=== PATIENT | female | born 1955 | race Caucasian/White ===

== ENCOUNTER 2016-03-12 09:06 | Outpatient (CLI) | payer MEDICAID | END 2016-03-12 09:07 | disposition home or self-care (01) | DX: E11.9 Type 2 diabetes mellitus without complications (principal) ==

== ENCOUNTER 2016-10-08 10:16 | Outpatient (CLI) | payer MEDICAID ==
[2016-10-08 19:01] LABS: CALCIUM 10.1 mg/dL (8.5-10.3); CREATININE 0.7 mg/dL (0.4-1.0)
[2016-10-08 20:19] LABS: HEMOGLOBIN A1C 0.75 g/dL
== END 2016-10-08 10:17 | disposition home or self-care (01) ==
LOC: LAB.F 10:16
PROVIDERS: ATTEND Physician Assistant Medical
DX: E11.9 Type 2 diabetes mellitus without complications (principal)
CPT/HCPCS: 36415; 80048; 82043; 83036

== ENCOUNTER 2016-10-29 15:53 | Outpatient (CLI) | payer OTHER, MEDICAID ==
--- NOTE | 2016-10-31 13:56 | Mammography Report ---
DIGITAL SCREENING MAMMOGRAM: 10/29/2016 CLINICAL INDICATION: A 61-year-old, for screening. COMPARISON: 05/2013, 04/2010. TECHNIQUE: Routine CC and MLO projections were obtained of the breasts. FINDINGS: The breasts demonstrate fatty replacement bilaterally. Intramammary lymph nodes are stable . A few coarse, typically benign calcifications are present. No suspicious masses, clustered microcal cifications, or regions of architectural distortion are identified. IMPRESSION: BENIGN FINDINGS. RECOMMENDATION: ROUTINE ANNUAL SCREENING UNLESS OTHERWISE CLINICALLY INDICATED. BIRADS CATEGORY 2-BENIGN FINDINGS. STANDARD QUALIFYING STATEMENTS 1. This examination was reviewed with the aid of Computer-Aided Detection (CAD). 2. A negative or benign imaging report should not delay biopsy if clinically suspicious findings are present. Consider surgical consultation if warranted. More than 5% of cancers are not identified by i maging. 3. Dense breasts may obscure an underlying neoplasm. JOB #: [id number] EXT JOB #:[id number]
== END 2016-10-29 15:54 | disposition home or self-care (01) ==
LOC: DI.S 15:53
PROVIDERS: ATTEND Physician Assistant Medical
DX: Z12.31 Encounter for screening mammogram for malignant neoplasm of breast (principal)
CPT/HCPCS: 77067

== ENCOUNTER 2016-12-02 14:32 | Outpatient (CLI) | payer MEDICAID | END 2016-12-02 14:33 | disposition EMS.NT | LOC: EMS 14:32 | PROVIDERS: ATTEND Surgery | DX: R40.20 Unspecified coma (principal) ==

== ENCOUNTER 2017-02-19 10:02 | Outpatient (CLI) | payer MEDICAID ==
[2017-02-19 18:21] LABS: BASOPHILS % (AUTO) 0.7 %; EOSINOPHILS # (AUTO) 0.2 10^3/uL (0.0-0.7); EOSINOPHILS % (AUTO) 3.5 %; HCT - HEMATOCRIT 40.3 % (37.0-47.0); HGB - HEMOGLOBIN 13.1 g/dL (12.0-16.0); LYMPHOCYTES # (AUTO) 1.8 10^3/uL (1.5-3.5); LYMPHOCYTES % (AUTO) 29.8 %; MEAN CORPUSCULAR HEMOGLOBIN 28.9 pg (27.0-31.0); MEAN CORPUSCULAR HGB CONC 32.4 g/dL (32.0-36.0); MEAN PLATELET VOLUME 9.2 fL (7.9-10.8); MONOCYTES # (AUTO) 0.7 10^3/uL (0.0-1.0); MONOCYTES % (AUTO) 11.3 %; NEUTROPHILS # (AUTO) 3.4 10^3/uL (1.5-6.6); NEUTROPHILS % (AUTO) 54.7 %; RED BLOOD COUNT 4.52 10^6/uL (4.20-5.40); RED CELL DISTRIBUTION WIDTH 13.3 % (12.0-15.0); UNCORRECTED WHITE BLOOD COUNT 6.2 x10^3/uL; WHITE BLOOD COUNT 6.2 x10^3/uL (4.8-10.8)
[2017-02-19 18:26] LABS: HEMOGLOBIN A1C 0.81 g/dL
[2017-02-19 18:32] LABS: ALBUMIN/GLOBULIN RATIO 1.6 (1.0-2.2); BILIRUBIN,TOTAL 0.6 mg/dL (0.2-1.0); BUN - BLOOD UREA NITROGEN 12 mg/dL (6-20); CALCIUM 9.3 mg/dL (8.5-10.3); CARBON DIOXIDE - CO2 30 mmol/L (21-32); CHLORIDE 99 mmol/L (101-111); CHOL/HDL RATIO 3.3 (<4.4); CHOLESTEROL 167 mg/dL; CREATININE 0.8 mg/dL (0.4-1.0); GFR - MDRD 73 (>89); GLUCOSE 116 mg/dL (70-100); HDL CHOLESTEROL 51 mg/dL; LDL/HDL RATIO 1.9 (<4.4); POTASSIUM 4.1 mmol/L (3.5-5.0); SODIUM 138 mmol/L (135-145); TOTAL PROTEIN 6.7 g/dL (6.7-8.2); TRIGLYCERIDES 92 mg/dL; VLDL CHOLESTEROL 18 mg/dL
== END 2017-02-19 10:03 | disposition home or self-care (01) ==
LOC: LAB.F 10:02
PROVIDERS: ATTEND Physician Assistant Medical
DX: Z00.00 Encounter for general adult medical examination without abnormal findings (principal); Z51.81 Encounter for therapeutic drug level monitoring; Z79.899 Other long term (current) drug therapy; E78.5 Hyperlipidemia, unspecified; E11.9 Type 2 diabetes mellitus without complications
CPT/HCPCS: 36415; 80053; 80061; 83036; 85025

== ENCOUNTER 2017-04-09 14:35 | Outpatient (CLI) | payer MEDICAID ==
--- NOTE | 2017-04-09 22:04 | MRI Report ---
EXAM: RIGHT SHOULDER MRI WITHOUT CONTRAST EXAM DATE: 04/09/2017 03:12 PM. CLINICAL HISTORY: Right shoulder pain, chronic. Calcific tendinosis of the rotator cuff. COMPARISON: Right shoulder radiography from 04/02/2017. TECHNIQUE: Multiplanar, multisequence T1-weighted and fluid-sensitive sequences of the shoulder witho ut contrast. Other: None. FINDINGS: Some of the images are degraded due to patient-related motion artifact. Acromioclavicular Region: The acromion is type II. There are enthesophytes at the anterior inferior a spect of the acromion. Gels-cg-[id number] acromioclavicular joint osteoarthritis. The coracoacromial an d coracoclavicular ligaments are intact. Small amount of fluid at the subacromial/subdeltoid bursa. T here is a 1 x 0.3 cm focus of isointense to hypointense tissue within the anterolateral aspect of the subdeltoid bursa. Glenohumeral Region: No subluxation. No effusion or loose bodies. The articular cartilage is unremark able. The glenohumeral ligaments and joint capsule are unremarkable. Bone Marrow: No fracture, marrow edema or bone lesions. Labrum: The labrum is unremarkable on this nonarthrographic study. Musculature/Rotator Cuff: There is supraspinatus tendinosis. There is an approximately 8 x 8 mm low-g rade partial-thickness bursal surface tear at the posterior distal aspect of the supraspinatus tendon . There is infraspinatus tendinosis. Teres minor tendon is unremarkable. There is tendinosis and a 1. 3 x 1 x 1.6 cm calcified deposit within the distal subscapularis tendon. No edema or fatty atrophy. Biceps Tendon: The long head of the biceps tendon and biceps natasha are intact. Other: The subcutaneous tissues are unremarkable. IMPRESSION: 1. Enthesophytes at the anterior inferior aspect of the acromion. Ocpy-sb-cknmclju acromioclavicular joint osteoarthritis. 2. Mild subacromial/subdeltoid bursitis. Small 1 x 0.3 cm focus of tissue within the anterolateral as pect of the subdeltoid bursa which may represent a calcified deposit or loose body or focal synovial debris. 3. Tendinosis and a focal 8 mm low-grade partial-thickness bursal surface tear at the supraspinatus t endon. Infraspinatus tendinosis. Calcific subscapularis tendinosis. [facility] MUSCULOSKELETAL RADIOLOGY SECTION Referring Provider Line: [phone] SITE ID: [id number]
== END 2017-04-09 14:36 | disposition home or self-care (01) ==
LOC: DI 14:35
PROVIDERS: ATTEND Orthopaedic Surgery
DX: M75.91 Shoulder lesion, unspecified, right shoulder (principal); M19.011 Primary osteoarthritis, right shoulder; M75.51 Bursitis of right shoulder; M75.101 Unspecified rotator cuff tear or rupture of right shoulder, not specified as traumatic

== ENCOUNTER 2017-07-02 10:53 | Outpatient (CLI) | payer MEDICAID | END 2017-07-02 10:54 | disposition home or self-care (01) | LOC: SC 10:53 | PROVIDERS: ATTEND Internal Medicine Pulmonary Disease | DX: G47.30 Sleep apnea, unspecified (principal); G47.10 Hypersomnia, unspecified; R06.83 Snoring | CPT/HCPCS: 99203; 99212 ==

== ENCOUNTER 2017-08-19 09:14 | Outpatient (CLI) | payer MEDICAID | END 2017-08-19 09:15 | disposition home or self-care (01) | LOC: SC 09:14 | PROVIDERS: ATTEND Nurse Practitioner Family | DX: G47.33 Obstructive sleep apnea (adult) (pediatric) (principal) | CPT/HCPCS: 99212; 99214 ==

== ENCOUNTER 2017-09-19 10:11 | Outpatient (CLI) | payer MEDICAID ==
[2017-09-19 18:19] LABS: HB2 TOTAL 13.5 g/dL; HEMOGLOBIN A1C 0.83 g/dL; HEMOGLOBIN A1C % 7.8 % (4.6-6.2)
[2017-09-19 18:28] LABS: ALBUMIN/GLOBULIN RATIO 1.5 (1.0-2.2); BILIRUBIN,TOTAL 0.7 mg/dL (0.2-1.0); CALCIUM 9.4 mg/dL (8.5-10.3); CREATININE 0.7 mg/dL (0.4-1.0); TOTAL PROTEIN 6.7 g/dL (6.7-8.2)
[2017-09-19 19:41] LABS: MICROALBUM/CREATININE RATIO,UR 21.7 ug/mg (<30.0); MICROALBUMIN,URINE 1.8 mg/dL (0-300.0)
== END 2017-09-19 10:12 | disposition home or self-care (01) ==
LOC: LAB.F 10:11
PROVIDERS: ATTEND Physician Assistant Medical
DX: E11.9 Type 2 diabetes mellitus without complications (principal); I10 Essential (primary) hypertension
CPT/HCPCS: 36415; 80053; 82043; 82570; 83036

== ENCOUNTER 2017-10-15 16:40 | Outpatient (CLI) | payer MEDICAID ==
--- NOTE | 2017-10-15 23:00 | XRAY Report ---
Procedure Date: 10/15/2017 Accession Number: [id number] / [id number] Procedure: XR - Foot 3 View LT CPT Code: FULL RESULT: EXAM: LEFT FOOT RADIOGRAPHY EXAM DATE: 10/15/2017 04:55 PM. CLINICAL HISTORY: Pain at second metatarsal without injury. COMPARISON: None. TECHNIQUE: 3 views. FINDINGS: Bones: There is no acute fracture or destructive bony abnormality. There is mild flattening of the distal articular surface of the second metatarsal. There is mild bony remodeling of the distal first metatarsal articular surface. Joints: The joint spaces preserved. No subluxation. Soft Tissues: There is a plantar calcaneal spur and spur at Achilles insertion. IMPRESSION: 1. No acute fracture or destructive bony abnormality. 2. Mild flattening of the distal articular surface of the second and first metatarsal without cortical disruption. Question a degenerative/arthritis process. [facility]
== END 2017-10-15 16:41 | disposition home or self-care (01) ==
LOC: DI 16:40
PROVIDERS: ATTEND Podiatrist
DX: M79.672 Pain in left foot (principal)

== ENCOUNTER 2017-11-06 11:53 | Emergency (ER) | payer MEDICAID ==
[2017-11-06 12:20] LABS: BILIRUBIN,URINE NEGATIVE (NEGATIVE); GLUCOSE, URINE (UA) 100 mg/dL (NEGATIVE); KETONES,URINE (UA) NEGATIVE (NEGATIVE); LEUKOCYTE ESTERASE, URINE MODERATE (NEGATIVE); NITRITE,URINE NEGATIVE (NEGATIVE); OCCULT BLOOD,URINE LARGE (NEGATIVE); PROTEIN,URINE TRACE mg/dL (NEGATIVE); UROBILINOGEN,URINE 0.2 (NORMAL) E.U./dL (NORMAL)
[2017-11-06 12:24] LABS: CLARITY,URINE HAZY (CLEAR)
[2017-11-06 12:36] LABS: BACTERIA,URINE Few /HPF (None Seen); SQUAMOUS EPITHELIAL CELL,UR FEW Squamous (<= Few); WBC CLUMPS,URINE PRESENT
[2017-11-06] MEDS ORDERED: cefTRIAXone 1 GM VIAL IM STA (13:27)
[2017-11-06] MEDS ORDERED: LIDOCAINE 1% 2 ML VIAL SUBQ ONE (13:27)
[2017-11-06] MEDS ORDERED: HYDROcod/ACETAM 5/325 MG TABLET PO STA (13:27)
--- NOTE | 2017-11-06 13:33 | ED Physician Documentation ---
History of Present Illness - Stated complaint Stated Complaint: FEMALE /LOWER BACK PX - Chief complaint Chief Complaint: UTI - History obtained from History obtained from: Patient - History of Present Illness Timing: How many days ago (4) Pain level max: 8 Pain level now: 8 Improved by: nothing Worsened by: urination - Additonal information Additional information: Patient is a 62-year-old female who has had piquancy, urgency, burning with urination for the past 4 days. Has now spread into the left flank and is having increasing pain. States had a temperature 100 last night. No vomiting. Has had slight diarrhea. No vaginal bleeding or discharge. Has not taken any antibiotics recently. Has had UTIs in the past Review of Systems Ten Systems: 10 systems reviewed and negative Constitutional: reports: Fever, Chills Ears: denies: Ear pain Nose: denies: Rhinorrhea / runny nose, Congestion Throat: denies: Sore throat Cardiac: denies: Chest pain / pressure Respiratory: denies: Cough GI: denies: Nausea, Vomiting, Hematemesis, Bloody / black stool : reports: Dysuria, Frequency, Hesitancy Skin: denies: Rash Musculoskeletal: denies: Neck pain, Back pain Neurologic: denies: Headache PD PAST MEDICAL HISTORY - Past Medical History Cardiovascular: Hypertension, High cholesterol Respiratory: Asthma Endocrine/Autoimmune: Type 2 diabetes GI: GERD, GI bleed Psych: Depression Musculoskeletal: Osteoarthritis, Other - Past Surgical History /SVP MONETIZATION: section, Other - Present Medications Home Medications: Ambulatory Orders Medication Instructions Recorded Confirmed Glipizide 5 mg BID 07/21/13 07/21/13 HYDROcod/ACETAM 5/325 [[place]erson 5/325] 1 07/21/13 07/21/13 Ropinirole HCl 1 mg 07/21/13 07/21/13 Sertraline [Zoloft] 100 mg BID 07/21/13 07/21/13 Simvastatin 20 07/21/13 07/21/13 metFORMIN [Glucophage] 1,000 mg BID 07/21/13 07/21/13 traZODone [Desyrel] 100 07/21/13 07/21/13 Cefdinir 300 mg PO BID #28 capsule 11/06/17 Hydrocodone/Acetaminophen 1 - 2 each PO Q6H PRN #14 tablet 11/06/17 [Hydrocodon-Acetaminophen 5-325] - Allergies Allergies/Adverse Reactions: Allergies Allergy/AdvReac Type Severity Reaction Status Date / Time lisinopril Allergy Dizziness Verified 11/06/17 12:05 codeine AdvReac Itching Verified 11/06/17 12:05 PD ED PE NORMAL - Vitals Vital signs reviewed: Yes - General General: Alert and oriented X 3, No acute distress - HEENT HEENT: Moist mucous membranes - Neck Neck: Supple, no meningeal sign - Cardiac Cardiac: RRR - Respiratory Respiratory: No respiratory distress, Clear bilaterally - Abdomen Abdomen: Soft, Non tender, Non distended - Back Back: No spinal TTP, Other (mild L CVAT) - Derm Derm: Warm and dry - Neuro Neuro: Alert and oriented X 3 - Psych Psych: Normal mood, Normal affect Results - Vitals Vitals: Vital Signs - 24 hr 11/06/17 11/06/17 12:01 13:52 Temperature 36.8 C Heart Rate 94 86 Respiratory 20 18 Rate Blood Pressure 123/59 L 113/65 O2 Saturation 93 97 Oxygen O2 Source Room air - Labs Labs: Laboratory Tests 11/06/17 12:00 Urine Color YELLOW Urine Clarity HAZY Urine pH 7.0 Ur Specific [place] <=1.005 Urine Protein TRACE Urine Glucose (UA) 100 H Urine Ketones NEGATIVE Urine Occult Blood LARGE H Urine Nitrite NEGATIVE Urine Bilirubin NEGATIVE Urine Urobilinogen 0.2 (NORMAL) Ur Leukocyte Esterase MODERATE H Urine RBC 6-10 H Urine WBC 11-25 H Urine WBC Clumps PRESENT Ur Squamous Epith Cells FEW Squamous Urine Bacteria Few Ur Microscopic Review INDICATED Urine Culture Comments INDICATED PD MEDICAL DECISION MAKING - ED course Complexity details: reviewed results, re-evaluated patient, considered differential, d/w patient ED course: Patient is a 62-year-old female with what appears to be a UTI, concerned that is developing into a pyelonephritis. Given IM Rocephin and will be placed on cefdinir for home. She is well-appearing, nontoxic. Afebrile. Tolerating p.o. without difficulty. We will have her follow-up with her doctor for further evaluation and care. Patient counseled regarding signs and symptoms for which I believe and urgent re-evaluation would be necessary. Patient with good understanding of and agreement to plan and is comfortable going home at this time This document was made in part using voice recognition software. While efforts are made to proofread this document, sound alike and grammatical errors may occur. - Sepsis Event Vital Signs: Vital Signs - 24 hr 11/06/17 11/06/17 12:01 13:52 Temperature 36.8 C Heart Rate 94 86 Respiratory 20 18 Rate Blood Pressure 123/59 L 113/65 O2 Saturation 93 97 Oxygen O2 Source Room air Departure - Departure Disposition: 01 Home, Self Care Clinical Impression: Pyelonephritis Condition: Good Instructions: ED Kidney Infec Female Follow-Up: Taylor Cheney PA-C [Primary Care Provider] - Within 1 week Prescriptions: Cefdinir 300 mg PO BID #28 capsule Hydrocodone/Acetaminophen [Hydrocodon-Acetaminophen 5-325] 1 - 2 each PO Q6H PRN #14 tablet PRN Reason: pain Comments: Take all antibiotics until gone. Return if you worsen. Follow-up with your doctor for further care. Do not drink alcohol or drive while on narcotic pain medicine. Note that many narcotic pain relievers also contain tylenol/acetaminophen. Please ensure that your total dose of acetaminophen from all sources does not exceed 3 grams (3000mg) per day. You may constipated on this medication, take a stool softener such as "Colace" twice a day while you are on it. Also recommend a xoci-zyt-kgdbugq laxative such as senna or MiraLAX any day that you do not have a bowel movement. If you received narcotic pain medication in the emergency department, do not drive or operate machinery for the next 24 hours.
[2017-11-06 13:53] VITALS: BP 113/65
== END 2017-11-06 14:25 | disposition home or self-care (01) ==
LOC: ED 11:53
DX: N12 Tubulo-interstitial nephritis, not specified as acute or chronic (principal); I10 Essential (primary) hypertension; E78.00 Pure hypercholesterolemia, unspecified; E11.9 Type 2 diabetes mellitus without complications
CPT/HCPCS: 81001; 87086; 87181; 96372; 99283; A9270; 81003

== ENCOUNTER 2017-12-19 09:49 | Outpatient (CLI) | payer MEDICAID ==
[2017-12-19 17:34] LABS: BUN - BLOOD UREA NITROGEN 14 mg/dL (6-20); CALCIUM 9.8 mg/dL (8.5-10.3); CARBON DIOXIDE - CO2 31 mmol/L (21-32); CHLORIDE 96 mmol/L (101-111); CHOL/HDL RATIO 2.9 (<4.4); CHOLESTEROL 173 mg/dL; CREATININE 0.7 mg/dL (0.4-1.0); GFR - MDRD 85 (>89); GLUCOSE 129 mg/dL (70-100); HDL CHOLESTEROL 59 mg/dL; LDL CHOLESTEROL,CALCULATED 96 mg/dL; LDL/HDL RATIO 1.6 (<4.4); SODIUM 135 mmol/L (135-145); VLDL CHOLESTEROL 18 mg/dL
[2017-12-19 17:35] LABS: HB2 TOTAL 14.9 g/dL; HEMOGLOBIN A1C 0.8 g/dL; HEMOGLOBIN A1C % 7.1 % (4.6-6.2)
== END 2017-12-19 09:50 | disposition home or self-care (01) ==
LOC: LAB.F 09:49
PROVIDERS: ATTEND Physician Assistant Medical
DX: E78.5 Hyperlipidemia, unspecified (principal); E11.9 Type 2 diabetes mellitus without complications
CPT/HCPCS: 36415; 80048; 80061; 83036; 83721

== ENCOUNTER 2017-12-30 14:05 | Outpatient (CLI) | payer MEDICAID | END 2017-12-30 14:06 | disposition home or self-care (01) | LOC: SC 14:05 | PROVIDERS: ATTEND Internal Medicine Pulmonary Disease | DX: G47.33 Obstructive sleep apnea (adult) (pediatric) (principal) | CPT/HCPCS: 99212; 99213 ==

== ENCOUNTER 2018-02-05 13:29 | Outpatient (CLI) | payer MEDICAID ==
--- NOTE | 2018-02-06 09:06 | DEXA Report ---
Reason: POSTMENOPAUSAL STATUS Procedure Date: 02/05/2018 Accession Number: [id number] / [id number] Procedure: DEX - Dexa Spine and/or Hip CPT Code: FULL RESULT: EXAM: Dexa Spine and/or Hip DATE: 02/05/2018 2:24 PM CLINICAL HISTORY: POSTMENOPAUSAL STATUS TECHNIQUE: Dual energy x-ray absorptiometry (DXA) was performed on a [employer] Dx System. Regions measured are the AP Spine, femoral neck, and if needed forearm. COMPARISON: None. In accordance with the International Society for Clinical Densitometry (ISCD) guidelines, data from previous exams may be reanalyzed using current recommendations and techniques. This is done to allow a more accurate basis for comparison with the current study. FINDINGS: The data for the lumbar spine is as follows: BMD (g/cm/cm) T-SCORE Z-SCORE REGION L1 1.016 -0.9 0.1 L2 1.093 -0.9 0.1 L3 1.268 0.6 1.6 L4 1.372 1.4 2.4 TOTAL 1.196 0.1 1.2 NOTE: All evaluable vertebrae are used for classification The data for the hip is as follows: BMD (g/cm/cm) T-SCORE Z-SCORE REGION Neck 0.994 -0.3 0.8 TOTAL 1.075 0.5 1.3 NOTE: The femoral neck or total proximal femur, whichever is lowest, is used for classification. IMPRESSION: THE WHO CLASSIFICATION BASED ON THE INTERNATIONAL REFERENCE STANDARD IS NORMAL. THE FRACTURE RISK IS NOT INCREASED. RECOMMENDATION: Patients with diagnosis of osteoporosis or osteopenia should have regular bone mineral density assessment. For those eligible for Medicare, routine testing is allowed once every 2 years. Testing frequency can be increased for patients who have rapidly progressing disease or for those who are receiving medical therapy to restore bone mass. COMMENT: World Health Organization (WHO) definitions for osteoporosis and osteopenia: NORMAL BMD: T-score at -1.0 or higher, fracture risk is low OSTEOPENIA BMD: T-score between -1.0 and -2.5, fracture risk is increased. OSTEOPOROSIS BMD: T-score at -2.5 or lower, fracture risk is high. National Osteoporosis Foundation recommends: 1. Obtain adequate dietary calcium (at least 1200 mg per day) and vitamin D (400-800 international units per day). 2. Participate, as appropriate, in regular weightbearing and muscle-strengthening exercise. 3. Avoid tobacco use and reduce alcohol and caffeine intake. 4. For more detailed information see the website at www.NOF.org.
== END 2018-02-05 13:30 | disposition home or self-care (01) ==
LOC: DI 13:29
PROVIDERS: ATTEND Physician Assistant Medical
DX: Z78.0 Asymptomatic menopausal state (principal)
CPT/HCPCS: 77080

== ENCOUNTER 2018-03-03 13:07 | Outpatient (CLI) | payer MEDICAID | END 2018-03-03 13:08 | disposition home or self-care (01) | LOC: SC 13:07 | PROVIDERS: ATTEND Internal Medicine Pulmonary Disease | DX: G47.33 Obstructive sleep apnea (adult) (pediatric) (principal) | CPT/HCPCS: 99212; 99213 ==

== ENCOUNTER 2018-05-27 10:07 | Outpatient (CLI) | payer MEDICAID ==
--- NOTE | 2018-05-27 11:34 | Ultrasound Report ---
Reason: ABDOMINAL PAIN,LLQ Procedure Date: 05/27/2018 Accession Number: [id number] / [id number] Procedure: US - Abdomen Limited CPT Code: FULL RESULT: EXAM: ABDOMEN ULTRASOUND LIMITED EXAM DATE: 05/27/2018 10:57 AM. CLINICAL HISTORY: Abdominal pain, LLQ. Tenderness with question of an abdominal wall defect on physical examination. COMPARISON: None. TECHNIQUE: Real-time scanning was performed with static images obtained. FINDINGS: The left lower quadrant abdominal wall region identified as tender by the patient was interrogated by ultrasound. The otherwise normal-appearing subcutaneous fat appears mildly more lobular in this region without a discrete lipoma identified. There is no measurable collection or mass. Underlying abdominal wall architecture is intact without visualized defect. IMPRESSION: No abdominal wall defect detected. [facility]
== END 2018-05-27 10:08 | disposition home or self-care (01) ==
LOC: DI 10:07
PROVIDERS: ATTEND Physician Assistant Medical
DX: R10.32 Left lower quadrant pain (principal)
CPT/HCPCS: 76705

== ENCOUNTER 2018-06-24 10:33 | Outpatient (CLI) | payer MEDICAID ==
[2018-06-24 17:32] LABS: BASOPHILS # (AUTO) 0.1 10^3/uL (0.0-0.1); BASOPHILS % (AUTO) 0.9 %; EOSINOPHILS # (AUTO) 0.2 10^3/uL (0.0-0.7); EOSINOPHILS % (AUTO) 3.4 %; HGB - HEMOGLOBIN 12.6 g/dL (12.0-16.0); LYMPHOCYTES # (AUTO) 2.3 10^3/uL (1.5-3.5); LYMPHOCYTES % (AUTO) 33.1 %; MEAN CORPUSCULAR HEMOGLOBIN 28.1 pg (27.0-31.0); MEAN CORPUSCULAR HGB CONC 32.9 g/dL (32.0-36.0); MEAN CORPUSCULAR VOLUME 85.3 fL (81.0-99.0); MEAN PLATELET VOLUME 8.5 fL (7.9-10.8); MONOCYTES # (AUTO) 0.7 10^3/uL (0.0-1.0); MONOCYTES % (AUTO) 9.3 %; NEUTROPHILS # (AUTO) 3.7 10^3/uL (1.5-6.6); NEUTROPHILS % (AUTO) 53.3 %; PLT - PLATELET COUNT 282 10^3/uL (130-450); RED BLOOD COUNT 4.48 10^6/uL (4.20-5.40); RED CELL DISTRIBUTION WIDTH 13.2 % (12.0-15.0)
[2018-06-24 17:50] LABS: ALBUMIN 3.7 g/dL (3.2-5.5); ALBUMIN/GLOBULIN RATIO 1.3 (1.0-2.2); ALKALINE PHOSPHATASE 55 IU/L (42-121); ALT ALANINE AMINOTRANSFERASE 38 IU/L (10-60); AST ASPARTATE AMINOTRANSFERASE 29 IU/L (10-42); BILIRUBIN,TOTAL 0.5 mg/dL (0.2-1.0); BUN - BLOOD UREA NITROGEN 7 mg/dL (6-20); CALCIUM 9.2 mg/dL (8.5-10.3); CARBON DIOXIDE - CO2 30 mmol/L (21-32); CHLORIDE 98 mmol/L (101-111); CHOL/HDL RATIO 2.9 (<4.4); CHOLESTEROL 192 mg/dL; CREATININE 0.7 mg/dL (0.4-1.0); GFR - MDRD 85 (>89); GLUCOSE 126 mg/dL (70-100); HDL CHOLESTEROL 67 mg/dL; LDL CHOLESTEROL,CALCULATED 100 mg/dL; LDL/HDL RATIO 1.5 (<4.4); SODIUM 137 mmol/L (135-145); TOTAL PROTEIN 6.5 g/dL (6.7-8.2); VLDL CHOLESTEROL 25 mg/dL
[2018-06-24 18:09] LABS: HB2 TOTAL 13.7 g/dL; HEMOGLOBIN A1C 1.2 g/dL; HEMOGLOBIN A1C % 10.2 % (4.6-6.2)
== END 2018-06-24 10:34 | disposition home or self-care (01) ==
LOC: LAB.F 10:33
PROVIDERS: ATTEND Physician Assistant Medical
DX: I10 Essential (primary) hypertension (principal); E11.9 Type 2 diabetes mellitus without complications; E78.5 Hyperlipidemia, unspecified
CPT/HCPCS: 36415; 80053; 80061; 83036; 83721; 85025

== ENCOUNTER 2018-10-21 12:03 | Outpatient (CLI) | payer MEDICAID ==
[2018-10-21 18:40] LABS: HB2 TOTAL 13.6 g/dL; HEMOGLOBIN A1C 0.82 g/dL; HEMOGLOBIN A1C % 7.7 % (4.6-6.2)
== END 2018-10-21 12:04 | disposition home or self-care (01) ==
LOC: LAB.S 12:03
PROVIDERS: ATTEND Physician Assistant Medical
DX: E11.9 Type 2 diabetes mellitus without complications (principal)
CPT/HCPCS: 36415; 83036

== ENCOUNTER 2019-02-18 15:19 | Emergency (ER) | payer MEDICAID ==
--- NOTE | 2019-02-18 15:55 | ED Physician Documentation ---
PD HPI MHE - Stated complaint Stated Complaint: SI - Chief complaint Chief Complaint: MHE - History obtained from History obtained from: Patient - History of Present Illness Primary symptom: Suicidal ideation Timing - onset: How many weeks ago (several) Pain level max: 0 Pain level now: 0 Contributing factors: Other (Patient states that she is upset because of a restraining order against her. She states she has been crying. She states that she felt more suicidal earlier today than she does now. She currently states she does not want to talk to anybody and just "wants to go home".) Recently seen: Clinic (Sent from clinic today for suicidal ideation. Stated she was going to put a plastic bag over her head or drive off a jo ann.) Review of Systems Ten Systems: 10 systems reviewed and negative Constitutional: denies: Fever, Chills Ears: denies: Ear pain Nose: denies: Rhinorrhea / runny nose, Congestion Cardiac: denies: Chest pain / pressure Respiratory: denies: Cough GI: denies: Vomiting, Diarrhea Skin: denies: Rash Musculoskeletal: denies: Neck pain, Back pain Neurologic: denies: Headache Psychiatric: reports: Depressed, Suicidal. denies: Homicidal, Hallucinations PD PAST MEDICAL HISTORY - Past Medical History Cardiovascular: Hypertension, High cholesterol Respiratory: Asthma Endocrine/Autoimmune: Type 2 diabetes GI: GERD, GI bleed Psych: Depression Musculoskeletal: Osteoarthritis, Other - Past Surgical History Past Surgical History: Yes /GROUND [employer]: section, Other - Present Medications Home Medications: Ambulatory Orders Medication Instructions Recorded Confirmed Glipizide 10 mg PO DAILY 07/21/13 02/18/19 Ropinirole HCl 1.5 mg PO DAILY PM 07/21/13 02/18/19 Simvastatin 20 mg PO DAILY PM 07/21/13 02/18/19 metFORMIN [Glucophage] 1,000 mg PO BID 07/21/13 02/18/19 traZODone [Desyrel] 100 mg PO DAILY PM 07/21/13 02/18/19 Calcium Carb/Mag Ox/Zinc Sulf [Cvs 1 tab PO DAILY 02/18/19 02/18/19 [id number]-Ysyvrfvna-Fsa Cplt] FLUoxetine [PROzac] 40 mg PO DAILY 02/18/19 02/18/19 Gabapentin 600 mg PO BID 02/18/19 02/18/19 Glimepiride 2 mg PO DAILY 02/18/19 02/18/19 Lamotrigine [Lamotrigine ER] 50 mg PO DAILY PM 02/18/19 02/18/19 Vit C/Ascorb Sod/Multivit-Min 500 mg PO DAILY 02/18/19 02/18/19 [Emergen-C 500 mg Chewable Tab] raNITIdine [Zantac] 150 mg PO BID 02/18/19 02/18/19 - Allergies Allergies/Adverse Reactions: Allergies Allergy/AdvReac Type Severity Reaction Status Date / Time lisinopril Allergy Dizziness Verified 02/18/19 15:28 codeine AdvReac Itching Verified 02/18/19 15:28 - Social History Does the pt smoke?: No PD ED PE NORMAL - Vitals Vital signs reviewed: Yes - General General: Alert and oriented X 3, No acute distress, Well developed/nourished - HEENT HEENT: Moist mucous membranes, Other (uncooperative, crying) - Neck Neck: Supple, no meningeal sign - Cardiac Cardiac: RRR, Strong equal pulses - Respiratory Respiratory: No respiratory distress, Clear bilaterally - Abdomen Abdomen: Soft, Non tender, Non distended - Derm Derm: Warm and dry - Neuro Neuro: Alert and oriented X 3 - Psych Psych: Normal mood, Normal affect Results - Vitals Vitals: Vital Signs - 24 hr 02/18/19 02/18/19 02/18/19 15:28 17:19 21:23 Temperature 36.5 C Heart Rate 96 Respiratory 14 17 Rate Blood Pressure 121/66 O2 Saturation 95 02/18/19 21:34 Temperature 36.9 C Heart Rate 91 Respiratory 93 H Rate Blood Pressure 135/74 H O2 Saturation 20 L Oxygen O2 Source Room air - Labs Labs: Laboratory Tests 02/18/19 02/18/19 02/18/19 15:53 15:53 15:53 WBC 8.5 RBC 4.71 Hgb 12.9 Hct 39.7 MCV 84.3 MCH 27.4 MCHC 32.5 RDW 15.3 H Plt Count 371 MPV 9.9 Neut # (Auto) 5.1 Lymph # (Auto) 2.5 [place] # (Auto) 0.7 Eos # (Auto) 0.1 Baso # (Auto) 0.1 Absolute Nucleated RBC 0.00 Nucleated RBC % 0.0 Sodium 137 Potassium 4.2 Chloride 100 L Carbon Dioxide 28 Anion Gap 9.0 BUN 7 Creatinine 0.7 Estimated GFR (MDRD) 85 L Glucose 235 H Calcium 9.7 Total Bilirubin 0.4 AST 20 ALT 37 Alkaline Phosphatase 72 Total Protein 7.7 Albumin 4.3 Globulin 3.4 Albumin/Globulin Ratio 1.3 Lipase 36 TSH 4.80 Urine Color Urine Clarity Urine pH Ur Specific [place] Urine Protein Urine Glucose (UA) Urine Ketones Urine Occult Blood Urine Nitrite Urine Bilirubin Urine Urobilinogen Ur Leukocyte Esterase Ur Microscopic Review Urine Culture Comments Salicylates < 6.0 Urine Opiates Screen Ur Oxycodone Screen Urine Methadone Screen Ur Propoxyphene Screen Acetaminophen < 10 L Ur Barbiturates Screen Ur Tricyclics Screen Ur Phencyclidine Scrn Ur Amphetamine Screen U Methamphetamines Scrn U Benzodiazepines Scrn Urine Cocaine Screen U Cannabinoids Screen Ethyl Alcohol < 5.0 02/18/19 21:27 WBC RBC Hgb Hct MCV MCH MCHC RDW Plt Count MPV Neut # (Auto) Lymph # (Auto) [place] # (Auto) Eos # (Auto) Baso # (Auto) Absolute Nucleated RBC Nucleated RBC % Sodium Potassium Chloride Carbon Dioxide Anion Gap BUN Creatinine Estimated GFR (MDRD) Glucose Calcium Total Bilirubin AST ALT Alkaline Phosphatase Total Protein Albumin Globulin Albumin/Globulin Ratio Lipase TSH Urine Color YELLOW Urine Clarity CLEAR Urine pH 7.0 Ur Specific [place] 1.010 Urine Protein NEGATIVE Urine Glucose (UA) NEGATIVE Urine Ketones NEGATIVE Urine Occult Blood NEGATIVE Urine Nitrite NEGATIVE Urine Bilirubin NEGATIVE Urine Urobilinogen 0.2 (NORMAL) Ur Leukocyte Esterase NEGATIVE Ur Microscopic Review NOT INDICATED Urine Culture Comments NOT INDICATED Salicylates Urine Opiates Screen POSITIVE H Ur Oxycodone Screen NEGATIVE Urine Methadone Screen NEGATIVE Ur Propoxyphene Screen NEGATIVE Acetaminophen Ur Barbiturates Screen NEGATIVE Ur Tricyclics Screen NEGATIVE Ur Phencyclidine Scrn NEGATIVE Ur Amphetamine Screen NEGATIVE U Methamphetamines Scrn NEGATIVE U Benzodiazepines Scrn POSITIVE H Urine Cocaine Screen NEGATIVE U Cannabinoids Screen NEGATIVE Ethyl Alcohol PD MEDICAL DECISION MAKING - ED course Complexity details: reviewed results, re-evaluated patient, considered differential, d/w patient, d/w family, d/w customer relations consultant ED course: Patient is medically clear for psychiatric care. She voiced suicidal ideation to the clinic today and initially was uncooperative here. Her daughter came to the emergency department she became more cooperative. She spoke with social work and they will pursue voluntary placement. [facility]. This document was made in part using voice recognition software. While efforts are made to proofread this document, sound alike and grammatical errors may occur. Departure - Departure Clinical Impression: Suicidal ideations Depression Qualifiers: Depression Type: unspecified Qualified Code(s): F32.9 - Major depressive disorder, single episode, unspecified Condition: Stable
[2019-02-18 16:00] LABS: BASOPHILS # (AUTO) 0.1 10^3/uL (0.0-0.1); BASOPHILS % (AUTO) 0.7 %; HGB - HEMOGLOBIN 12.9 g/dL (12.0-16.0); LYMPHOCYTES # (AUTO) 2.5 10^3/uL (1.5-3.5)
[2019-02-18 16:03] LABS: EOSINOPHILS # (AUTO) 0.1 10^3/uL (0.0-0.7); EOSINOPHILS % (AUTO) 0.9 %; LYMPHOCYTES % (AUTO) 29.1 %; MEAN CORPUSCULAR HEMOGLOBIN 27.4 pg (27.0-31.0); MEAN CORPUSCULAR HGB CONC 32.5 g/dL (32.0-36.0); MEAN CORPUSCULAR VOLUME 84.3 fL (81.0-99.0); MEAN PLATELET VOLUME 9.9 fL (7.9-10.8); MONOCYTES # (AUTO) 0.7 10^3/uL (0.0-1.0); MONOCYTES % (AUTO) 8.1 %; NEUTROPHILS # (AUTO) 5.1 10^3/uL (1.5-6.6); NEUTROPHILS % (AUTO) 60.4 %; PLT - PLATELET COUNT 371 10^3/uL (130-450); RED BLOOD COUNT 4.71 10^6/uL (4.20-5.40); RED CELL DISTRIBUTION WIDTH 15.3 % (12.0-15.0); WHITE BLOOD COUNT 8.5 x10^3/uL (4.8-10.8)
[2019-02-18 16:15] LABS: ACETAMINOPHEN < 10 ug/mL (10-30); ALBUMIN 4.3 g/dL (3.2-5.5); ALBUMIN/GLOBULIN RATIO 1.3 (1.0-2.2); ALKALINE PHOSPHATASE 72 IU/L (42-121); ALT ALANINE AMINOTRANSFERASE 37 IU/L (10-60); AST ASPARTATE AMINOTRANSFERASE 20 IU/L (10-42); BILIRUBIN,TOTAL 0.4 mg/dL (0.2-1.0); BUN - BLOOD UREA NITROGEN 7 mg/dL (6-20); CALCIUM 9.7 mg/dL (8.5-10.3); CARBON DIOXIDE - CO2 28 mmol/L (21-32); CHLORIDE 100 mmol/L (101-111); CREATININE 0.7 mg/dL (0.4-1.0); GFR - MDRD 85 (>89); GLUCOSE 235 mg/dL (70-100); LIPASE 36 U/L (22-51); SALICYLATE < 6.0 mg/dL; SODIUM 137 mmol/L (135-145); TOTAL PROTEIN 7.7 g/dL (6.7-8.2)
[2019-02-18 21:31] LABS: MUDS CUTOFF CONCENTRATIONS CUTOFF CONC BELOW:
[2019-02-18 21:35] LABS: BILIRUBIN,URINE NEGATIVE (NEGATIVE); GLUCOSE, URINE (UA) NEGATIVE (NEGATIVE); KETONES,URINE (UA) NEGATIVE (NEGATIVE); LEUKOCYTE ESTERASE, URINE NEGATIVE (NEGATIVE); NITRITE,URINE NEGATIVE (NEGATIVE); OCCULT BLOOD,URINE NEGATIVE (NEGATIVE); PROTEIN,URINE NEGATIVE (NEGATIVE); UROBILINOGEN,URINE 0.2 (NORMAL) E.U./dL (NORMAL)
[2019-02-18 21:38] LABS: CLARITY,URINE CLEAR (CLEAR)
[2019-02-18 21:50] LABS: AMPHETAMINE SCREEN,URINE NEGATIVE (NEGATIVE); BENZODIAZEPINES SCREEN, URINE POSITIVE (NEGATIVE); COCAINE SCREEN URINE NEGATIVE (NEGATIVE); METHADONE SCREEN, URINE NEGATIVE (NEGATIVE); METHAMPHETAMINES SCREEN, URINE NEGATIVE (NEGATIVE); OPIATE SCREEN, URINE POSITIVE (NEGATIVE); OXYCODONE SCREEN, URINE NEGATIVE (NEGATIVE); PROPOXYPHENE SCREEN, URINE NEGATIVE (NEGATIVE); TRICYCLIC ANTIDEPRESSANT,URINE NEGATIVE (NEGATIVE)
[2019-02-19] MEDS ORDERED: ACETAMINOPHEN 500 MG TABLET PO STA (01:22)
[2019-02-19] MEDS ORDERED: traZODone 50 MG TABLET PO STA (02:23)
[2019-02-19] MEDS ORDERED: LORazepam 1 MG TABLET PO STA (02:28)
[2019-02-19 03:43] VITALS: BP 141/84
[2019-02-19] MEDS ORDERED: GABAPENTIN 100 MG CAPSULE PO STA (08:21)
[2019-02-19] MEDS ORDERED: metFORMIN 500 MG TABLET PO STA (08:21)
[2019-02-19] MEDS ORDERED: FLUoxetine 10 MG CAPSULE PO STA (08:23)
[2019-02-19] MEDS ORDERED: glipiZIDE 5 MG TABLET PO STA (08:24)
== END 2019-02-19 10:15 ==
LOC: ED 15:19
DX: F32.9 Major depressive disorder, single episode, unspecified (principal); R45.851 Suicidal ideations; I10 Essential (primary) hypertension; E11.9 Type 2 diabetes mellitus without complications; Z79.84 Long term (current) use of oral hypoglycemic drugs
CPT/HCPCS: 36415; 80053; 80306; 80307; 80320; 80329; 81003; 83690; 84443; 85025; 99283; 99285; A9270; J8499; 81001; 87086

== ENCOUNTER 2019-03-25 13:37 | Outpatient (CLI) | payer MEDICAID ==
[2019-03-25 18:03] LABS: HB2 TOTAL 11.9 g/dL; HEMOGLOBIN A1C 0.87 g/dL; HEMOGLOBIN A1C % 8.8 % (4.6-6.2)
[2019-03-25 18:09] LABS: CALCIUM 9.6 mg/dL (8.5-10.3); CREATININE 0.7 mg/dL (0.4-1.0)
[2019-03-25 18:19] LABS: CREATININE,URINE 15.7 mg/dL; MICROALBUM/CREATININE RATIO,UR 12.7 ug/mg (<30.0); MICROALBUMIN,URINE 0.2 mg/dL (0-300.0)
== END 2019-03-25 13:38 | disposition home or self-care (01) ==
LOC: LAB.S 13:37
PROVIDERS: ATTEND Physician Assistant Medical
DX: E11.65 Type 2 diabetes mellitus with hyperglycemia (principal)
CPT/HCPCS: 36415; 80048; 82043; 82570; 83036

== ENCOUNTER 2019-03-31 12:50 | Outpatient (CLI) | payer MEDICAID ==
--- NOTE | 2019-03-31 13:37 | SLEEP CARE CONSULTATION ---
Information from patient questionnaire entered by Zenobia Dave. I have reviewed and concur with the information entered by Zenobia Dave. This document represents the service I personally performed and the decisions made by me, Keke Cruz MD, [facility]. History of Present Illness Previous diagnosis: Mild, Obstructive Sleep Apnea-Hypopnea Syndrome AHI: 13 Reason for follow up: annual Equipment type: CPAP Equipment obtained from: [facility] Prior sleep studies: Yes HPI additional information: HPI: Ms. Jackson returned today for follow up of nasal CPAP therapy. She was diagnosed to have mild obstructive sleep apnea-hypopnea syndrome. The patient went to [facility] for the equipment and was fitted with a Respironics DreamWear nasal pillows. She reports using the device nightly and all through the night. The compliance report shows usage in 170 nights out of the past 180 nights, averaging 6.9 hours a night. She complained of nasal congestion and dryness. She thinks that the pressure of 5 - 8 cmH2O is comfortable (lowered from 4 15 cmH2O because she complained that it was too high in the middle of the night). On the CPAP therapy she notices improvement in her sleep quality, and that she wakes up feeling fresher in the morning and more awake/alert during the day. The Rollins Sleepiness Scale score 6. The average residual AHI is 10.4 (was 7.7) with the residual respiratory events being mostly hypopneas. The average time in large leak per day is 16 minutes a night. The 90th percentile pressure is 7.9 cmH2O. CPAP Compliance Data - Data Reviewed with Patient Average duration of nightly device use: 6H 55M Compliance rate %: 82.2 Current pressure setting (cmH2O): 5-8 Humidity settin Heated hose settin Average residual AHI: 10.4 Average large leak: 16m 3s Subjective Patient concerns: reports: mask discomfort (sometimes), condensation in mask/hose, nasal congestion, dry mouth, nose, throat Initial Rollins Sleepiness Scale score: 7 Current Rollins Sleepiness Scale score: 6 Allergies and Home Medications Drug allergies reviewed: Yes Home medication list reviewed: Yes Allergy and home medication list: Current Medications: trazodone, metformin, Requip, gabapentin, sertraline, insulin, ranitidine, simvastatin, Q-Quique inhaler, Ventolin inhaler, vitamins Allergies: Lisinopril, Aspirin, Hydrocodone Review of Systems Review of systems same as previous: Yes Physical Exam Height: 5 ft 3 in Weight: 200 lb Weight change since last visit: +30 Body Mass Index: 35.4 BMI Classification: Obesity Class 2 Impression and Plan IMPRESSION: 1. Obstructive Sleep Apnea-Hypopnea Syndrome, mild, with the patient doing well on nasal CPAP therapy. She has good compliance and significant clinical improvement. The current pressure appears slightly ineffective but comfortable. Overall, she is very satisfied with treatment and plans to continue with it long-term. The residual AHI may be falsely high because she reports having somniloquy (sleep talking). The weight gain may have raised her pressure requirement. The patient agrees to try a little higher pressure. PLAN: 1. Raise the autoCPAP to 7 11 cmH2O. 2. Try to lose weight 3. Try other masks and nasal pillows, e.g. ResMed N30i mask and P30I nasal pillows. 4. Raise the heated humidifier for nasal congestion and dryness. 5. Return in one year for follow up or earlier if there is any problem with the treatment. I spent 100% of this visit face to face with the patient with greater than 50% of this was spent time counseling the patient and coordination of care.
== END 2019-03-31 12:51 | disposition home or self-care (01) ==
LOC: SC 12:50
PROVIDERS: ATTEND Internal Medicine Pulmonary Disease
DX: G47.33 Obstructive sleep apnea (adult) (pediatric) (principal); E66.9 Obesity, unspecified; Z68.35 Body mass index [BMI] 35.0-35.9, adult
CPT/HCPCS: 99212; 99213

== ENCOUNTER 2019-09-26 10:20 | Outpatient (CLI) | payer MEDICAID ==
--- NOTE | 2019-09-26 12:06 | XRAY Report ---
PROCEDURE: Chest 2 View X-Ray INDICATIONS: ASTHMA TECHNIQUE: 2 view(s) of the chest. COMPARISON: None. FINDINGS: Surgical changes and devices: None. Lungs and pleura: No pleural effusions or pneumothorax. There is mild to moderate diffuse reticulono dular pulmonary opacity. Mediastinum: Mediastinal contours are normal. Heart size is enlarged. Bones and chest wall: No suspicious bony abnormalities. Soft tissues appear unremarkable. IMPRESSION: Mild to moderate diffuse atypical pneumonia versus edema. Reviewed by: Delmi Carrillo MD on 09/26/2019 12:05 PM PDT Approved by: Delmi Carrillo MD on 09/26/2019 12:05 PM PDT Station ID: [id number]
[2019-09-26 13:32] LABS: BASOPHILS # (AUTO) 0.1 10^3/uL (0.0-0.1); BASOPHILS % (AUTO) 0.7 %; EOSINOPHILS # (AUTO) 0.2 10^3/uL (0.0-0.7); EOSINOPHILS % (AUTO) 2.4 %; HGB - HEMOGLOBIN 11.7 g/dL (12.0-16.0); LYMPHOCYTES # (AUTO) 1.9 10^3/uL (1.5-3.5); LYMPHOCYTES % (AUTO) 21.6 %; MEAN CORPUSCULAR HEMOGLOBIN 26.4 pg (27.0-31.0); MEAN CORPUSCULAR HGB CONC 31.3 g/dL (32.0-36.0); MEAN CORPUSCULAR VOLUME 84.4 fL (81.0-99.0); MEAN PLATELET VOLUME 10.5 fL (7.9-10.8); MONOCYTES # (AUTO) 0.7 10^3/uL (0.0-1.0); MONOCYTES % (AUTO) 8.5 %; NEUTROPHILS # (AUTO) 5.7 10^3/uL (1.5-6.6); NEUTROPHILS % (AUTO) 66.6 %; PLT - PLATELET COUNT 408 10^3/uL (130-450); RED BLOOD COUNT 4.43 10^6/uL (4.20-5.40); RED CELL DISTRIBUTION WIDTH 16.7 % (12.0-15.0); WHITE BLOOD COUNT 8.6 x10^3/uL (4.8-10.8)
[2019-09-26 13:41] LABS: ALBUMIN 4.3 g/dL (3.2-5.5); ALBUMIN/GLOBULIN RATIO 1.3 (1.0-2.2); ALKALINE PHOSPHATASE 66 IU/L (42-121); ALT ALANINE AMINOTRANSFERASE 28 IU/L (10-60); AST ASPARTATE AMINOTRANSFERASE 19 IU/L (10-42); BILIRUBIN,TOTAL 0.4 mg/dL (0.2-1.0); BUN - BLOOD UREA NITROGEN 8 mg/dL (6-20); CALCIUM 9.6 mg/dL (8.5-10.3); CARBON DIOXIDE - CO2 27 mmol/L (21-32); CHLORIDE 102 mmol/L (101-111); CHOLESTEROL 170 mg/dL; CREATININE 0.8 mg/dL (0.4-1.0); GLUCOSE 196 mg/dL (70-100); HDL CHOLESTEROL 83 mg/dL; LDL CHOLESTEROL,CALCULATED 67 mg/dL; LDL/HDL RATIO 0.8 (<4.4); SODIUM 140 mmol/L (135-145); TOTAL PROTEIN 7.5 g/dL (6.7-8.2); VLDL CHOLESTEROL 20 mg/dL
[2019-09-26 13:56] LABS: HB2 TOTAL 12.5 g/dL; HEMOGLOBIN A1C 0.93 g/dL
== END 2019-09-26 10:21 | disposition home or self-care (01) ==
LOC: DI.S 10:20
PROVIDERS: ATTEND Family Medicine
DX: J45.909 Unspecified asthma, uncomplicated (principal); E11.9 Type 2 diabetes mellitus without complications; Z79.4 Long term (current) use of insulin; E78.5 Hyperlipidemia, unspecified; I10 Essential (primary) hypertension; E66.9 Obesity, unspecified; Z79.899 Other long term (current) drug therapy
CPT/HCPCS: 36415; 71046; 80053; 80061; 82043; 83036; 83721; 84443; 85025

== ENCOUNTER 2019-11-19 15:21 | Outpatient (CLI) | payer MEDICAID ==
[2019-11-19 20:25] LABS: CALCIUM 9.9 mg/dL (8.5-10.3); CREATININE 0.8 mg/dL (0.4-1.0)
[2019-11-19 20:31] LABS: CREATININE,URINE 99.7 mg/dL; MICROALBUMIN,URINE 0.6 mg/dL (0-300.0)
== END 2019-11-19 15:22 | disposition home or self-care (01) ==
LOC: LAB.S 15:21
PROVIDERS: ATTEND Physician Assistant
DX: E11.65 Type 2 diabetes mellitus with hyperglycemia (principal)
CPT/HCPCS: 36415; 80048; 82043; 82570; 83036

== ENCOUNTER 2019-12-03 13:22 | Outpatient (CLI) | payer MEDICARE, MEDICAID | END 2019-12-03 13:23 | disposition home or self-care (01) | LOC: DI 13:22 | PROVIDERS: ATTEND Physician Assistant | DX: I51.7 Cardiomegaly (principal) | CPT/HCPCS: 93306 ==

== ENCOUNTER 2020-03-17 18:42 | Outpatient (CLI) | payer MEDICARE, MEDICAID | END 2020-03-17 18:43 | disposition home or self-care (01) | LOC: COV 18:42 | PROVIDERS: ATTEND Family Medicine | DX: Z20.822 Contact with and (suspected) exposure to COVID-19 (principal) ==

== ENCOUNTER 2020-03-29 11:19 | Outpatient (CLI) | payer MEDICARE, MEDICAID ==
[2020-03-29 15:53] LABS: HEMOGLOBIN A1c% 8.5 % (4.27-6.07)
[2020-03-29 15:56] LABS: CALCIUM 10.2 mg/dL (8.5-10.3); CREATININE 0.9 mg/dL (0.4-1.0); CREATININE,URINE < 13.0 mg/dL; MICROALBUM/CREATININE RATIO,UR 23.1 ug/mg (<30.0); MICROALBUMIN,URINE 0.3 mg/dL (0-300.0)
== END 2020-03-29 11:20 | disposition home or self-care (01) ==
LOC: LAB.S 11:19
PROVIDERS: ATTEND Physician Assistant
DX: E11.8 Type 2 diabetes mellitus with unspecified complications (principal)
CPT/HCPCS: 36415; 80048; 82043; 82570; 83036

== ENCOUNTER 2020-06-16 07:58 | Outpatient (CLI) | payer MEDICARE, MEDICAID ==
--- NOTE | 2020-06-16 13:50 | XRAY Report ---
PROCEDURE: Wrist 3 View LT INDICATIONS: LEFT WRIST PAIN TECHNIQUE: 3 views of the wrist were acquired. COMPARISON: 06/10/2020 FINDINGS: Unchanged alignment of radial styloid fracture since 06/10/2020. There is healing sclerosis. Scattered subchondral sclerosis and spurring. Mild first CMC and triscaphe joint degeneration. Borderline wide aleida appearance of the scapholunate interval which could be further assessed with clenched fist views as necessary. There is questionable cortical discontinuity involving the triquetrum on the lateral vi ew. Soft tissues: No suspicious soft tissue calcifications. IMPRESSION: Unchanged alignment of radial styloid fracture Possible nondisplaced triquetral chip fracture (not seen on the comparison study). Please correlate w ith point tenderness. Reviewed by: Kevin Mcdermott MD on 06/16/2020 1:49 PM PDT Approved by: Kevin Mcdermott MD on 06/16/2020 1:49 PM PDT Station ID: [id number]
== END 2020-06-16 23:59 | disposition home or self-care (01) ==
LOC: DI.N 07:58
PROVIDERS: ATTEND Orthopaedic Surgery
DX: M25.532 Pain in left wrist (principal); S52.515A Nondisplaced fracture of left radial styloid process, initial encounter for closed fracture

== ENCOUNTER 2020-06-23 18:38 | Outpatient (CLI) | payer MEDICARE, MEDICAID ==
--- NOTE | 2020-06-23 14:50 | XRAY Report ---
PROCEDURE: Wrist 4 View LT INDICATIONS: NONDISPLACED FX OF L RADIAL STYLOID PROCESS TECHNIQUE: 4 views of the wrist were acquired. COMPARISON: 06/20/2020, 06/16/2020. FINDINGS: There is unchanged alignment of radial styloid fracture. There is also unchanged alignment of chronic appearing fifth metacarpal base fracture. Diffuse carpal joint degeneration, with spurring and scler osis. A previously described possible triquetral chip fracture is not well seen on today's lateral vi ew. IMPRESSION: Unchanged alignment as above. Reviewed by: Kevin Mcdermott MD on 06/23/2020 2:48 PM PDT Approved by: Kevin Mcdermott MD on 06/23/2020 2:48 PM PDT Station ID: [id number]
== END 2020-06-23 23:59 | disposition home or self-care (01) ==
LOC: DI.N 18:38
PROVIDERS: ATTEND Orthopaedic Surgery
DX: S52.512D Displaced fracture of left radial styloid process, subsequent encounter for closed fracture with routine healing (principal); S62.317D Displaced fracture of base of fifth metacarpal bone, left hand, subsequent encounter for fracture with routine healing

== ENCOUNTER 2020-07-05 09:40 | Outpatient (CLI) | payer MEDICARE, MEDICAID ==
[2020-07-05 14:50] LABS: CREATININE,URINE 234.9 mg/dL; MICROALBUM/CREATININE RATIO,UR 11.5 ug/mg (<30.0); MICROALBUMIN,URINE 2.7 mg/dL (0-300.0)
[2020-07-05 20:21] LABS: ESTIMATED AVERAGE GLUCOSE 169 mg/dL (70-100); HEMOGLOBIN A1c% 7.5 % (4.27-6.07)
== END 2020-07-05 09:41 | disposition home or self-care (01) ==
LOC: LAB.S 09:40
PROVIDERS: ATTEND Physician Assistant
DX: E11.8 Type 2 diabetes mellitus with unspecified complications (principal); E78.5 Hyperlipidemia, unspecified; I10 Essential (primary) hypertension
CPT/HCPCS: 36415; 82043; 82570; 83036

== ENCOUNTER 2020-07-25 10:51 | Outpatient (CLI) | payer MEDICARE, MEDICAID ==
--- NOTE | 2020-07-25 13:31 | XRAY Report ---
PROCEDURE: Wrist 3 View LT INDICATIONS: NONDISPLACED FX OF L RADIAL STYLOID PROCESS TECHNIQUE: 3 views of the wrist were acquired. COMPARISON: No trauma. FINDINGS: Bones: No fractures or dislocations. No suspicious bony lesions. There has been a diagonal nondisp laced fracture at the radial styloid process, which now appears healed. Scaphoid view: No trauma to the scaphoid is found. Soft tissues: No suspicious soft tissue calcifications. IMPRESSION: No new trauma found and there is normal alignment of the healed radial styloid process fracture best seen as a diagonal dense band across that area of prior fracture. Reviewed by: Jacob Dhillon MD on 07/25/2020 1:29 PM PDT Approved by: Jacob Dhillon MD on 07/25/2020 1:29 PM PDT Station ID: [id number]
== END 2020-07-25 23:59 | disposition home or self-care (01) ==
LOC: DI.N 10:51
PROVIDERS: ATTEND Orthopaedic Surgery
DX: S52.515D Nondisplaced fracture of left radial styloid process, subsequent encounter for closed fracture with routine healing (principal)

== ENCOUNTER 2020-08-23 08:00 | Outpatient (CLI) | payer MEDICARE, MEDICAID ==
--- NOTE | 2020-08-23 15:37 | XRAY Report ---
PROCEDURE: Wrist 4 View LT INDICATIONS: LEFT WRIST PAIN TECHNIQUE: 4 views of the wrist were acquired. COMPARISON: 06/10/2020, 06/16/2020, 06/23/2020, 07/25/2020 FINDINGS: Bones: No new fractures. Stable appearance of known nondisplaced radial styloid fracture of the dis eileen radius. Stable appearance of dorsal triquetral fracture. Stable appearance of chronic appearing m ildly displaced fracture deformity involving the base of the left fifth metacarpal. No suspicious bon y lesions. Scaphoid view: Stable scapholunate alignment. Soft tissues: No suspicious soft tissue calcifications. IMPRESSION: Stable radiographic evaluation of the left wrist with unchanged appearance and alignment of known dis eileen radius radial styloid fracture, fracture deformities of the base of the fifth metacarpal, and mil dly displaced dorsal triquetral fracture. No new fracture seen. Reviewed by: Evangelist Hernandez MD on 08/23/2020 3:36 PM PDT Approved by: Evangelist Hernandez MD on 08/23/2020 3:36 PM PDT Station ID: [id number]
== END 2020-08-23 23:59 | disposition home or self-care (01) ==
LOC: DI.S 08:00
PROVIDERS: ATTEND Physician Assistant Medical
DX: M25.532 Pain in left wrist (principal)

== ENCOUNTER 2020-12-09 10:59 | Outpatient (CLI) | payer MEDICARE, MEDICAID ==
[2020-12-09 15:06] LABS: CALCIUM 9.8 mg/dL (8.5-10.3); CREATININE 1.1 mg/dL (0.4-1.0); POTASSIUM 4.2 mmol/L (3.5-5.0)
[2020-12-09 15:28] LABS: CREATININE,URINE 110.8 mg/dL; MICROALBUM/CREATININE RATIO,UR 15.3 ug/mg (<30.0); MICROALBUMIN,URINE 1.7 mg/dL (0-300.0)
[2020-12-09 20:04] LABS: ESTIMATED AVERAGE GLUCOSE 163 mg/dL (70-100); HEMOGLOBIN A1c% 7.3 % (4.27-6.07)
== END 2020-12-09 11:00 | disposition home or self-care (01) ==
LOC: LAB.S 10:59
PROVIDERS: ATTEND Internal Medicine
DX: E11.8 Type 2 diabetes mellitus with unspecified complications (principal)
CPT/HCPCS: 36415; 80048; 82043; 82570; 83036

== ENCOUNTER 2021-02-11 11:19 | Outpatient (CLI) | payer MEDICARE, MEDICAID | END 2021-02-11 11:20 | disposition critical access hospital (66) | LOC: EMS 11:19 | DX: S09.90XA Unspecified injury of head, initial encounter (principal); M54.9 Dorsalgia, unspecified; R11.0 Nausea; W01.198A Fall on same level from slipping, tripping and stumbling with subsequent striking against other object, initial encounter; Y93.01 Activity, walking, marching and hiking; Y92.008 Other place in unspecified non-institutional (private) residence as the place of occurrence of the external cause | CPT/HCPCS: A0425; A0427 ==

== ENCOUNTER 2021-02-11 11:50 | Emergency (ER) | payer MEDICARE, MEDICAID ==
[2021-02-11] MEDS ORDERED: METOCLOPRAMIDE 10 MG/2 ML VIAL IVP STA (12:11)
[2021-02-11] MEDS ORDERED: HYDROmorphone 1 MG/ML CARPUJECT IVP STA (12:11)
--- NOTE | 2021-02-11 12:15 | ED Physician Documentation ---
PD HPI MAJOR TRAUMA - Stated complaint Stated Complaint: GLF/BACK PX - Chief complaint Chief Complaint: Trauma Hd/Nk - History obtained from History obtained from: Patient, EMS - Additional information Additional information: 65-year-old woman with osteoarthritis and diabetes has already been under a lot of stress as her daughter is selling her house and then she tripped and fell into the side of the washing machine today resulting in severe back pain. She states she hit her head and does not think she lost consciousness but does not remember exactly how she fell. Back pain is most severe and debilitating. She is not anticoagulated. Prior to arrival she received 4 mg of Zofran. Review of Systems Ten Systems: 10 systems reviewed and negative Constitutional: denies: Fever, Chills Nose: denies: Rhinorrhea / runny nose, Congestion Respiratory: denies: Dyspnea, Cough GI: denies: Abdominal Pain Neurologic: reports: Headache (She had a severe headache last night from the stress of her daughter selling her house, but no headache relatable to the trauma of today.) PD PAST MEDICAL HISTORY - Past Medical History Cardiovascular: Hypertension, High cholesterol Respiratory: Asthma Neuro: None Endocrine/Autoimmune: Type 2 diabetes GI: GERD, GI bleed BAFFLE MOUNTER: None : None HEENT: None Psych: Depression, Anxiety, Bipolar disorder, Panic attacks, ADD/ADHD, Post traumatic stress disorder Musculoskeletal: Osteoarthritis, Other Derm: None - Past Surgical History Past Surgical History: Yes /BAFFLE MOUNTER: section, Other - Present Medications Home Medications: Ambulatory Orders Medication Instructions Recorded Confirmed Ropinirole HCl 1.5 mg PO DAILY PM 07/21/13 02/18/19 Simvastatin 20 mg PO DAILY PM 07/21/13 02/18/19 glipiZIDE [Glipizide] 10 mg PO DAILY 07/21/13 02/18/19 metFORMIN [Glucophage] 1,000 mg PO BID 07/21/13 02/18/19 traZODone [Desyrel] 150 mg PO DAILY PM 07/21/13 02/18/19 Calcium Carb/Mag Ox/Zinc Sulf [Cvs 1 tab PO DAILY 02/18/19 02/18/19 Xqfdzcl-Iijvucakg-Crk Cplt] FLUoxetine [PROzac] 40 mg PO DAILY 02/18/19 02/18/19 Gabapentin 600 mg PO BID 02/18/19 02/18/19 Glimepiride 2 mg PO DAILY 02/18/19 02/18/19 Lamotrigine [Lamotrigine ER] 50 mg PO DAILY PM 02/18/19 02/18/19 Ubidecarenone/Vit E/Vit E Mix 200 mg PO DAILY 02/18/19 02/18/19 [Co-Enzyme Q10 100 mg Softgel] Vit B12` 1,000 mcg PO DAILY 02/18/19 02/18/19 Vit C/Ascorb Sod/Multivit-Min 500 mg PO DAILY 02/18/19 02/18/19 [Emergen-C 500 mg Chewable Tab] raNITIdine [Zantac] 150 mg PO BID 02/18/19 02/18/19 HYDROcod/ACETAM 5/325 [[place] 5/325] 1 - 2 tab PO Q6H PRN #15 tablet 02/11/21 - Allergies Allergies/Adverse Reactions: Allergies Allergy/AdvReac Type Severity Reaction Status Date / Time lisinopril Allergy Dizziness Verified 02/11/21 11:57 codeine AdvReac Itching Verified 02/11/21 11:57 - Social History Does the pt smoke?: No Smoking Status: Never smoker Does the pt drink ETOH?: Yes Does the pt have substance abuse?: Yes - Family History Family history: reports: Non contributory - Immunizations Immunizations are current?: No - POLST Patient has POLST: No PD ED PE NORMAL - Vitals Vital signs reviewed: Yes - General General: Alert and oriented X 3, No acute distress, Other (Is in a c-collar now on a backboard. She is logrolled off of the backboard during exam but maintained in a c-collar pending imaging due to potential distracting injury.) - HEENT HEENT: PERRL, EOMI - Neck Neck: No bony TTP - Cardiac Cardiac: RRR, No murmur - Respiratory Respiratory: No respiratory distress, Clear bilaterally - Abdomen Abdomen: Normal bowel sounds, Soft, Non tender - Back Back: Other (Severe tenderness around the mid lumbar spine) - Derm Derm: Normal color, Warm and dry - Extremities Extremities: Other (The patient has equal and normal Achilles and patellar reflexes bilaterally. Normal sensation in all areas of the legs. Patient denies saddle anesthesia. Normal strength in flexion-extension at the ankles, knees, and flexion of the hips.) - Neuro Neuro: Alert and oriented X 3, Normal speech Results - Vitals Vitals: Vital Signs - 24 hr 02/11/21 02/11/21 02/11/21 11:52 12:02 12:32 Temperature 37.2 C Heart Rate 90 86 90 Respiratory 14 19 20 Rate Blood Pressure 119/81 H 124/72 118/69 O2 Saturation 98 96 99 02/11/21 02/11/21 13:02 13:30 Temperature Heart Rate 84 86 Respiratory 21 18 Rate Blood Pressure 117/63 117/63 O2 Saturation 94 97 Oxygen O2 Source Room air - Labs Labs: Laboratory Tests 02/11/21 02/11/21 02/11/21 12:21 12:21 12:21 WBC 11.1 H RBC 4.32 Hgb 11.9 L Hct 36.7 L MCV 85.0 MCH 27.5 MCHC 32.4 RDW 14.9 Plt Count 343 MPV 10.2 Neut # (Auto) 8.5 H Lymph # (Auto) 1.5 [place] # (Auto) 0.8 Eos # (Auto) 0.1 Baso # (Auto) 0.1 Absolute Nucleated RBC 0.00 Nucleated RBC % 0.0 PT 12.6 INR 1.1 Sodium 137 Potassium 3.8 Chloride 96 L Carbon Dioxide 30 Anion Gap 11.0 BUN 19 Creatinine 0.9 Estimated GFR (MDRD) 63 L Glucose 201 H Calcium 9.5 - Rads (name of study) CT of the head, cervical spine, thoracic spine, lumbar spine demonstrate some degenerative changes and incidental findings without acute trauma Radiology: EMP read contemporaneously PD MEDICAL DECISION MAKING - ED course ED course: 65-year-old woman with severe back pain after a ground-level fall. She is in enough pain that it would be considered a distracting injury and as such the remainder of the spine was imaged as well as was her head given the potential for head injury. After the administration of 0.5 mg of Dilaudid and cannot completion of CT scanning she was feeling much better. She was able to walk with a walker and requested discharge. I am prescribing a short course of short-acting opioid pain medication for this patient. I have reviewed the patients MARKETING OPERATIONS ANALYST and no concerning findings were noted. I have discussed that the opioids are for short term therapy only, and will not be refilled from the ED. Departure - Departure Disposition: 01 Home, Self Care Clinical Impression: Injury of head and neck, Neck pain, Injury of back Condition: Good Record reviewed to determine appropriate education?: Yes Instructions: ED Contusion Back Prescriptions: HYDROcod/ACETAM 5/325 [[place] 5/325] 1 - 2 tab PO Q6H PRN #15 tablet PRN Reason: Pain Comments: As we discussed, an incidental finding on your imaging today shows that you have a cyst near your right ovary. This mandates follow-up with your primary care physician and a pelvic ultrasound as an outpatient. Please call your doctor about this on Saturday. Prescription sent electronically to [facility] in [place]. Call your doctor to arrange a follow-up appointment, make the next available appointment. In the interim, return anytime if worse or if new symptoms develop. I am prescribing a short course of narcotic pain medication for you. These are potentially dangerous and addictive medications that should be used carefully. These medications may constipate you. Take an tmbi-wgt-gtpeley stool softener (docusate) twice daily with plenty of water while taking these medications. If you go 24 hours without a bowel movement, take mptl-xtj-qhimcli miralax, per package instructions. Do not drink or drive while taking these medications. If you received narcotic or sedating medications while in the emergency department, do not drive for 24 hours. Store this medication in a safe, secure place and out of reach of children. It is a violation of federal law to give or sell this medication to another person or to use in a manner other than prescribed. The ED will not refill narcotic prescriptions, including prescriptions lost or stolen. To dispose of unwanted medications: 1. [facility] at [address] in [place] has a medication drop box. They accept prescription medications (in pill form) Saturday through Saturday 9:00 a.m. to 5:00 p.m. 2. The [facility] [employer] accepts prescription medications (in pill form only) for disposal year round. Call for more information. 3. Contact the [facility] for the next [facility] sponsored prescription drug collection event. , [phone], or [phone]; Note that many narcotic pain relievers also contain Tylenol/acetaminophen. Please ensure that your total dose of acetaminophen from all sources does not exceed 3 g (3000 mg) per day. Discharge Date/Time: 02/11/21 14:39
[2021-02-11 12:27] LABS: BASOPHILS # (AUTO) 0.1 10^3/uL (0.0-0.1); BASOPHILS % (AUTO) 0.6 %; EOSINOPHILS # (AUTO) 0.1 10^3/uL (0.0-0.7); EOSINOPHILS % (AUTO) 0.8 %; HCT - HEMATOCRIT 36.7 % (37.0-47.0); HGB - HEMOGLOBIN 11.9 g/dL (12.0-16.0); LYMPHOCYTES # (AUTO) 1.5 10^3/uL (1.5-3.5); LYMPHOCYTES % (AUTO) 13.8 %; MEAN CORPUSCULAR HEMOGLOBIN 27.5 pg (27.0-31.0); MEAN CORPUSCULAR HGB CONC 32.4 g/dL (32.0-36.0); MEAN PLATELET VOLUME 10.2 fL (7.9-10.8); MONOCYTES # (AUTO) 0.8 10^3/uL (0.0-1.0); NEUTROPHILS # (AUTO) 8.5 10^3/uL (1.5-6.6); NEUTROPHILS % (AUTO) 76.8 %; PLT - PLATELET COUNT 343 10^3/uL (130-450); RED BLOOD COUNT 4.32 10^6/uL (4.20-5.40); RED CELL DISTRIBUTION WIDTH 14.9 % (12.0-15.0); WHITE BLOOD COUNT 11.1 x10^3/uL (4.8-10.8)
[2021-02-11 12:36] LABS: CALCIUM 9.5 mg/dL (8.5-10.3); CREATININE 0.9 mg/dL (0.4-1.0); POTASSIUM 3.8 mmol/L (3.5-5.0)
[2021-02-11 12:43] LABS: INR 1.1 (0.8-1.2); PT - PROTHROMBIN TIME 12.6 secs (9.9-12.6)
[2021-02-11 13:08] VITALS: BP 117/63
--- NOTE | 2021-02-11 13:15 | CT Report ---
PROCEDURE: HEAD WO INDICATIONS: head/neck/back injury TECHNIQUE: Noncontrast 4.5 mm thick angled axial sections acquired from the foramen magnum to the vertex. For r adiation dose reduction, the following was used: automated exposure control, adjustment of mA and/or kV according to patient size. COMPARISON: None. FINDINGS: Image quality: Excellent. CSF spaces: Basal cisterns are patent. No extra-axial fluid collections. Ventricles are normal in size and shape. Brain: No midline shift. No intracranial masses or hemorrhage. Schmitz-white matter interface is norm al. Skull and face: Calvarium and visualized facial bones are intact, without suspicious lesions. Sinuses: Visualized sinuses and mastoids are clear. IMPRESSION: No acute process. Reviewed by: Delmi Carrillo MD on 02/11/2021 12:14 PM [facility] Approved by: Delmi Carrillo MD on 02/11/2021 12:14 PM [facility] Station ID: [id number]
--- NOTE | 2021-02-11 13:16 | CT Report ---
PROCEDURE: CERVICAL SPINE WO INDICATIONS: head/neck/back injury TECHNIQUE: Noncontrast 3 mm thick sections acquired from the skull base to the T4 level. Sagittal and coronal r eformats were then constructed. For radiation dose reduction, the following was used: automated exp osure control, adjustment of mA and/or kV according to patient size. COMPARISON: None. FINDINGS: Image quality: Excellent. Bones: No fractures or dislocations. Visualized superior ribs are intact. Soft tissues: Prevertebral soft tissues are normal in thickness. No paravertebral hematomas. No ap ical pneumothoraces. IMPRESSION: No fracture. Reviewed by: Delmi Carrillo MD on 02/11/2021 12:15 PM [facility] Approved by: Delmi Carrillo MD on 02/11/2021 12:15 PM [facility] Station ID: [id number]
--- NOTE | 2021-02-11 13:17 | CT Report ---
PROCEDURE: THORACIC SPINE WO INDICATIONS: head/neck/back injury TECHNIQUE: Noncontrast 3 mm thick sections acquired through the region of interest in the thoracic spine. Sagit eileen and coronal reformats were then constructed. For radiation dose reduction, the following was used : automated exposure control, adjustment of mA and/or kV according to patient size. COMPARISON: None. FINDINGS: Image quality: Excellent. Bones: There is normal overall bony alignment. No acute vertebral body compression fractures. No s uspicious sclerotic or lytic bony lesions. Central spinal canal is of normal overall caliber. Soft tissues: No paravertebral masses or hematomas. Visualized posteromedial lungs appear clear. C alcification of the coronary vasculature. IMPRESSION: 1. No fracture. Reviewed by: Delmi Carrillo MD on 02/11/2021 12:16 PM [facility] Approved by: Delmi Carrillo MD on 02/11/2021 12:16 PM [facility] Station ID: [id number]
--- NOTE | 2021-02-11 13:19 | CT Report ---
PROCEDURE: LUMBAR SPINE WO INDICATIONS: head/neck/back injury TECHNIQUE: Noncontrast 3 mm thick sections acquired from the T12 level to the sacrum. Sagittal and coronal refo rmats were constructed. For radiation dose reduction, the following was used: automated exposure co ntrol, adjustment of mA and/or kV according to patient size. COMPARISON: None. FINDINGS: Image quality: Excellent. Bones: There is normal bony alignment. No acute vertebral body compression fractures. No suspiciou s lytic or blastic bony lesions. Central spinal caliber is of normal overall caliber. Bilateral L4-L 5 and L5-S1 pars interarticularis defects. Multilevel disc space narrowing, endplate osteophyte forma tion, and facet hypertrophy. Soft tissues: No retroperitoneal masses or hematomas. Visualized aorta is normal in caliber. There is an incompletely visualized 46 mm diameter right adnexal cyst. IMPRESSION: 1. No fracture. 2. Bilateral L4-L5 and L5-S1 pars interarticularis defects. 3. Multilevel degenerative disc and facet disease. 4. Right adnexal cyst. Nonemergent outpatient follow-up pelvic ultrasound is recommended for further assessment. Reviewed by: Delmi Carrillo MD on 02/11/2021 12:18 PM [facility] Approved by: Delmi Carrillo MD on 02/11/2021 12:18 PM [facility] Station ID: [id number]
[2021-02-11] MEDS ORDERED: HYDROcod/ACETAM 5/325 MG TABLET PO STA (13:47)
== END 2021-02-11 14:39 | disposition home or self-care (01) ==
LOC: EDUNIT# → EDBD → ED 11:50
DX: S39.92XA Unspecified injury of lower back, initial encounter (principal); S09.90XA Unspecified injury of head, initial encounter; S19.9XXA Unspecified injury of neck, initial encounter; W01.198A Fall on same level from slipping, tripping and stumbling with subsequent striking against other object, initial encounter; Y92.008 Other place in unspecified non-institutional (private) residence as the place of occurrence of the external cause; M51.37 Other intervertebral disc degeneration, lumbosacral region; N83.201 Unspecified ovarian cyst, right side; I10 Essential (primary) hypertension; E11.9 Type 2 diabetes mellitus without complications; Z79.84 Long term (current) use of oral hypoglycemic drugs
CPT/HCPCS: 36415; 70450; 72125; 72128; 72131; 80048; 85025; 85610; 96374; 99283; 99284; A9270; J1170; J2765

== ENCOUNTER 2021-05-15 09:53 | Outpatient (CLI) | payer MEDICARE, MEDICAID | END 2021-05-15 09:54 | disposition home or self-care (01) | LOC: DI 09:53 | PROVIDERS: ATTEND Internal Medicine | DX: I11.0 Hypertensive heart disease with heart failure (principal); I34.0 Nonrheumatic mitral (valve) insufficiency; I49.3 Ventricular premature depolarization | CPT/HCPCS: 93306 ==

== ENCOUNTER 2021-06-16 09:44 | Outpatient (CLI) | payer MEDICARE, MEDICAID ==
[2021-06-16 12:47] LABS: BASOPHILS # (AUTO) 0.1 10^3/uL (0.0-0.1); BASOPHILS % (AUTO) 0.7 %; EOSINOPHILS # (AUTO) 0.3 10^3/uL (0.0-0.7); HGB - HEMOGLOBIN 11.2 g/dL (12.0-16.0); LYMPHOCYTES # (AUTO) 2.6 10^3/uL (1.5-3.5); LYMPHOCYTES % (AUTO) 28.5 %; MEAN CORPUSCULAR HEMOGLOBIN 27.9 pg (27.0-31.0); MEAN CORPUSCULAR VOLUME 87.1 fL (81.0-99.0); MEAN PLATELET VOLUME 10.7 fL (7.9-10.8); MONOCYTES # (AUTO) 0.9 10^3/uL (0.0-1.0); MONOCYTES % (AUTO) 10.3 %; NEUTROPHILS # (AUTO) 5.2 10^3/uL (1.5-6.6); NEUTROPHILS % (AUTO) 57.3 %; PLT - PLATELET COUNT 358 10^3/uL (130-450); RED BLOOD COUNT 4.02 10^6/uL (4.20-5.40); RED CELL DISTRIBUTION WIDTH 16.5 % (12.0-15.0); WHITE BLOOD COUNT 9.1 x10^3/uL (4.8-10.8)
[2021-06-16 12:54] LABS: ALBUMIN 4.3 g/dL (3.2-5.5); ALBUMIN/GLOBULIN RATIO 1.3 (1.0-2.2); ALKALINE PHOSPHATASE 59 IU/L (42-121); ALT ALANINE AMINOTRANSFERASE 17 IU/L (10-60); AST ASPARTATE AMINOTRANSFERASE 16 IU/L (10-42); BILIRUBIN,TOTAL 0.4 mg/dL (0.2-1.0); BUN - BLOOD UREA NITROGEN 26 mg/dL (6-20); CALCIUM 9.5 mg/dL (8.5-10.3); CARBON DIOXIDE - CO2 30 mmol/L (21-32); CHLORIDE 97 mmol/L (101-111); CHOL/HDL RATIO 3.1 (<4.4); CHOLESTEROL 183 mg/dL; CREATININE 0.9 mg/dL (0.4-1.0); GFR - MDRD 63 (>89); GLUCOSE 88 mg/dL (70-100); HDL CHOLESTEROL 59 mg/dL; LDL CHOLESTEROL,CALCULATED 101 mg/dL; LDL/HDL RATIO 1.7 (<4.4); SODIUM 138 mmol/L (135-145); TOTAL PROTEIN 7.5 g/dL (6.7-8.2); TRIGLYCERIDES 114 mg/dL; VLDL CHOLESTEROL 23 mg/dL
[2021-06-16 13:04] LABS: THYROID STIMULATING HORMONE 3.43 uIU/mL (0.34-5.60)
[2021-06-17 14:15] LABS: % IRON SATURATION 14 % (20-50); IRON 56 ug/dL (28-170); TOTAL IRON BINDING CAPACITY 406 ug/dL (250-450); TRANSFERRIN 290 mg/dL (192-382)
== END 2021-06-16 09:45 | disposition home or self-care (01) ==
LOC: LAB.N 09:44
PROVIDERS: ATTEND Nurse Practitioner
DX: E11.8 Type 2 diabetes mellitus with unspecified complications (principal); E78.5 Hyperlipidemia, unspecified; I11.0 Hypertensive heart disease with heart failure; I50.9 Heart failure, unspecified; E66.9 Obesity, unspecified; D64.9 Anemia, unspecified
CPT/HCPCS: 36415; 80053; 80061; 81599; 82728; 83036; 83540; 83721; 84443; 84466; 85025

== ENCOUNTER 2021-07-06 10:24 | Outpatient (CLI) | payer MEDICARE, MEDICAID ==
--- NOTE | 2021-07-06 17:28 | Ultrasound Report ---
PROCEDURE: Pelvic w/Transvaginal INDICATIONS: RIGHT OVARIAN CYST TECHNIQUE: Real-time scanning was performed of the pelvic organs, with image documentation. Additional endovagi nal scanning was necessary due to incomplete visualization of the adnexal and endometrial structures by transabdominal scanning. COMPARISON: CT lumbar spine 02/11/2021 FINDINGS: Limited scanning through the kidneys shows no hydronephrosis. No pathologic free abdominal or pelvic fluid. Uterus: Uterus is normal in size at approximately 10.2 x 2.9 x 4.6 cm. The myometrium is heterogeneo us. There is a coarse peripheral calcification. The endometrium is thin measuring 2 mm. Tiny focus in the endocervix may be redundant mucosa versus 4 mm polyp. No vascular stalk. Ovaries: Structure believed to be the right ovary measures approximately 4.9 x 3.9 x 3.6 cm and is c omprised of 2 cystic regions, one measuring 3.1 cm and containing homogeneous low-level echoes, and t he other is shadowing and not well characterized. The structure believed to be the left ovary seen only transabdominally measures roughly 2.6 cm in max imal diameter. Other: No free pelvic fluid. IMPRESSION: 1. Incompletely characterized right adnexal mass, potentially corresponding to the structure seen on lumbar spine CT with differential diagnosis of debris filled bowel loop. Further characterization wit h contrast enhanced pelvic MRI is recommended. 2. Suboptimal visualization of left ovary. 3. Questionable cervical polyp versus redundant mucosa. Reviewed by: Raissa Purcell MD on 07/06/2021 5:26 PM PDT Approved by: Raissa Purcell MD on 07/06/2021 5:26 PM PDT Station ID: [id number]
== END 2021-07-06 10:25 | disposition home or self-care (01) ==
LOC: DI 10:24
PROVIDERS: ATTEND Nurse Practitioner
DX: R93.89 Abnormal findings on diagnostic imaging of other specified body structures (principal)

== ENCOUNTER 2021-08-31 11:47 | Outpatient (CLI) | payer MEDICARE, MEDICAID ==
[2021-08-31 17:58] LABS: BASOPHILS # (AUTO) 0.1 10^3/uL (0.0-0.1); BASOPHILS % (AUTO) 0.7 %; EOSINOPHILS # (AUTO) 0.2 10^3/uL (0.0-0.7); EOSINOPHILS % (AUTO) 2.5 %; HCT - HEMATOCRIT 36.9 % (37.0-47.0); HGB - HEMOGLOBIN 11.8 g/dL (12.0-16.0); LYMPHOCYTES # (AUTO) 2.7 10^3/uL (1.5-3.5); MEAN CORPUSCULAR HEMOGLOBIN 28.2 pg (27.0-31.0); MEAN CORPUSCULAR VOLUME 88.3 fL (81.0-99.0); MEAN PLATELET VOLUME 11.1 fL (7.9-10.8); MONOCYTES # (AUTO) 0.7 10^3/uL (0.0-1.0); MONOCYTES % (AUTO) 9.4 %; NEUTROPHILS % (AUTO) 52.1 %; PLT - PLATELET COUNT 332 10^3/uL (130-450); RED BLOOD COUNT 4.18 10^6/uL (4.20-5.40); RED CELL DISTRIBUTION WIDTH 14.8 % (12.0-15.0); WHITE BLOOD COUNT 7.7 x10^3/uL (4.8-10.8)
[2021-08-31 18:09] LABS: CREATININE,URINE 52.4 mg/dL; MICROALBUM/CREATININE RATIO,UR 9.5 ug/mg (<30.0); MICROALBUMIN,URINE 0.5 mg/dL (0-300.0)
[2021-08-31 18:14] LABS: ALBUMIN 4.1 g/dL (3.2-5.5); ALBUMIN/GLOBULIN RATIO 1.2 (1.0-2.2); ALKALINE PHOSPHATASE 58 IU/L (42-121); ALT ALANINE AMINOTRANSFERASE 20 IU/L (10-60); AST ASPARTATE AMINOTRANSFERASE 18 IU/L (10-42); BILIRUBIN,TOTAL < 0.2 mg/dL (0.2-1.0); BUN - BLOOD UREA NITROGEN 16 mg/dL (6-20); CALCIUM 9.8 mg/dL (8.5-10.3); CARBON DIOXIDE - CO2 28 mmol/L (21-32); CHLORIDE 101 mmol/L (101-111); CHOLESTEROL 155 mg/dL; CREATININE 0.9 mg/dL (0.4-1.0); GFR - MDRD 63 (>89); GLUCOSE 162 mg/dL (70-100); HDL CHOLESTEROL 52 mg/dL; LDL CHOLESTEROL,CALCULATED 86 mg/dL; LDL/HDL RATIO 1.7 (<4.4); POTASSIUM 4.3 mmol/L (3.5-5.0); SODIUM 140 mmol/L (135-145); TOTAL PROTEIN 7.4 g/dL (6.7-8.2); TRIGLYCERIDES 85 mg/dL; VLDL CHOLESTEROL 17 mg/dL
[2021-08-31 18:20] LABS: THYROID STIMULATING HORMONE 4.47 uIU/mL (0.34-5.60)
[2021-08-31 20:14] LABS: ESTIMATED AVERAGE GLUCOSE 148 mg/dL (70-100); HEMOGLOBIN A1c% 6.8 % (4.27-6.07)
== END 2021-08-31 11:48 | disposition home or self-care (01) ==
LOC: LAB.N 11:47
PROVIDERS: ATTEND Nurse Practitioner
DX: E11.8 Type 2 diabetes mellitus with unspecified complications (principal); R53.83 Other fatigue
CPT/HCPCS: 36415; 80053; 80061; 82043; 82570; 83036; 83721; 84443; 85025

== ENCOUNTER 2021-11-01 13:02 | Outpatient (CLI) | payer MEDICARE, MEDICAID ==
[2021-11-01 13:41] VITALS: BP 110/79
--- NOTE | 2021-11-01 13:41 | SLEEP CARE CONSULTATION ---
Information from patient questionnaire entered by Andres Galicia MA. I have reviewed and concur with the information entered by Andres Galicia MA. This document represents the service I personally performed and the decisions made by , Lissy Ferguson ARNP. History of Present Illness Service Date and Time: 11/01/2021 1302 Initial [place] Sleepiness Scale score: 7 Current [place] Sleepiness Scale score: 3 (11/01/2021) Additional HPI information: TYRONE GRIMES returns for follow up and results of the recently performed polysomnography. I explained the pathophysiology behind obstructive sleep apnea. We then spent quite a bit of time discussing different treatment options. For mild obstructive sleep apnea, surgery and oral appliance are alternatives to nasal CPAP therapy but in moderate or severe cases, nasal CPAP is the most effective and reliable treatment. I reviewed the impact of weight changes on sleep apnea and strongly recommended losing weight. After some discussion, the patient would like to restart the nasal CPAP therapy. Nasal autoCPAP set at 4-12 cmH20 will be ordered with rationale explained. I explained how CPAP machine works and what to expect when using the machine. Using CPAP every night in order to get used to it was emphasized. Patient advised to put CPAP mask on before getting into bed so as not to fall asleep without CPAP. To assist acclimation to CPAP use, it could also be used for a s hort time during day while reading or watching TV. The patient was instructed to call the CPAP supplier to discuss any mechanical problem that may occur. If the mask given is uncomfortable or is difficult to keep on through the night even with adjustment, contact the CPAP supplier as many will replace with another mask style if notified before 30 days. If snoring or perceives is not getting enough air or too much air from the machine, notify this office. Patient was cautioned about risks of drowsy driving until sleepiness symptoms resolve. Sleep Study - Results Type of Sleep Study: Polysomnography (F/U POLY, PRIOR SS 07/27/2017, MARY, DUTTA 09/09/2017, hasnt used cpap since 08/2020) Prior sleep studies: Yes Polysomnography/Home Sleep Study results: IMPRESSION: The quality of the study is good. The patient had reduced sleep efficiency due to two prolonged awakenings during the night. The sleep architecture was abnormal for sleep fragmentation and lack of REM sleep. Respiratory monitoring showed mild obstructive sleep apnea-hypopnea (AHI = 11.2) associated with frequent arousals, oxyhemoglobin desaturation and mild hypoxia (hood oxygen saturation of 86%). The patient only slept supine during this study (supine AHI = 11.2; non-supine = 0.00). Snore was infrequent and moderate in intensity. There was no significant periodic leg movement of sleep. Cardiac rhythm was normal sinus rhythm without significant arrhythmia. No abnormal behavior (parasomnia) observed during the night. Allergies and Home Medications Known drug allergies: Yes Drug allergies reviewed: Yes Home medication list reviewed: Yes (no changes) Allergy and home medication list: Allergies lisinopril Allergy (Verified 02/11/21 11:57) Dizziness CRISTIAN Inhibitors Adverse Reaction (Verified 06/14/21 12:56) Unknown aspirin Adverse Reaction (Verified 06/14/21 12:56) Unknown codeine Adverse Reaction (Verified 02/11/21 11:57) Itching hydrocodone Adverse Reaction (Verified 06/14/21 12:56) Unknown latex Adverse Reaction (Verified 06/14/21 12:56) Unknown olanzapine Adverse Reaction (Verified 06/14/21 12:56) Unknown VERIFIED BY JOSHUA SARAVIA 11/01/2021 1300 Review of Systems Review of systems same as previous: Yes (no changes) Physical Exam Vital signs obtained and entered by: JOSHUA SARAVIA Blood Pressure: 110/79 (R20, P70, RIGHT) Cuff size: wrist Heart Rate: 70 O2 Saturation: 96 (PAPER MASK) Height: 5 ft 3 in Weight: 201 lb 8 oz (CLOTHES) Body Mass Index: 35.6 BMI Classification: Obese Impression and Plan 1. Obstructive Sleep Apnea-Hypopnea Syndrome, mild, with lowest oxygen saturation of 86%. Obviously this is the cause of the patients symptoms of unrefreshed sleep, and excessive daytime sleepiness. Positive pressure therapy could benefit depression, gastric reflux, hypertension, diabetes and insomnia. As mentioned above, the patient will be re-started on nasal autoCPAP therapy with pressure set at 4-12 cmH2O. Compliance guidelines also reviewed. A copy of compliance guidelines will be given for reference at check out. Patient had previously been on a CPAP that she stopped using because it is one of the [employer] that is on the recall. She also states when she tried to turn it on recently to start using it again the CPAP would not turn on. It sounds like it is malfunctioning. I will write to get her an updated replacement device and supplies so that she can restart CPAP therapy. Patient voiced understanding and agreement with this plan of care. * Restart Nasal auto CPAP therapy, pressure at 4-12 cm H2O. * Update CPAP * Update Supplies * Attempt to lose weight. * Avoid supine sleep until using CPAP. * The patient is again cautioned about driving until sleepiness completely resolves. * Return one month after CPAP obtained. I will assess response to therapy and compliance at that time. Counseling Topics: Weight loss health impact Visit Type: In Office Time Spent with Patient (minutes): 22 Provider Statement: I spent 100% of the Face to Face Visit with the patient with greater than 50% spent counseling the patient and coordination of care.
== END 2021-11-01 13:03 | disposition home or self-care (01) ==
LOC: SC 13:02
PROVIDERS: ATTEND Nurse Practitioner Family
DX: G47.33 Obstructive sleep apnea (adult) (pediatric) (principal); E66.9 Obesity, unspecified; Z68.35 Body mass index [BMI] 35.0-35.9, adult
CPT/HCPCS: 99213; G0463; 99212

== ENCOUNTER 2022-01-01 09:12 | Outpatient (CLI) | payer MEDICARE, MEDICAID ==
--- NOTE | 2022-01-02 11:14 | Mammography Report ---
BILATERAL DIGITAL SCREENING MAMMOGRAM 3D/2D: 01/01/2022 CLINICAL: Routine screening. Comparison is made to exams dated: 10/29/2016 mammogram, 05/11/2013 mammogram, and 04/21/2010 mammogram - [facility]. Both breasts are almost entirely fatty (category a/<25% glandular tissue). No significant masses, calcifications, or other findings are seen in either breast. There has been no significant interval change. IMPRESSION: NEGATIVE There is no mammographic evidence of malignancy. A 1 year screening mammogram is recommended. Based on the Tyrer Cuzick model (a risk assessment model) the patients lifetime risk is 3.3% and her 10 year risk is 1.6%. According to the ACR, ACS, and NCCN guidelines, an annual breast MRI exam iván g with mammogram is recommended if the patients lifetime risk is 20% or greater. This exam was interpreted at Station ID: [id number]. NOTE: For mammograms, a report in lay terms will be sent to the patient. Approximately 15% of breast malignancies will not be visualized mammographically. In the management of a palpable breast mass, a negative mammogram must not discourage biopsy of a clinically suspicious lesion. Electronically Signed By: Fish linda/dar:01/01/2022 11:12:33 ACR BI-RADS Category 1: Negative 3341F PARENCHYMAL PATTERN: (F) - The breast(s) demonstrate(s) diffuse fatty replacement. BI-RADS CATEGORY: (1) - 1 RECOMMENDATION: (ANNUAL) - Recommend routine annual screening mammography. [id number] 1 year screening LATERALITY: (B)
== END 2022-01-01 09:13 | disposition home or self-care (01) ==
LOC: DI.N 09:12
PROVIDERS: ATTEND Obstetrics & Gynecology
DX: Z12.31 Encounter for screening mammogram for malignant neoplasm of breast (principal)

== ENCOUNTER 2022-01-01 09:18 | Outpatient (CLI) | payer MEDICARE, MEDICAID ==
[2022-01-01 13:10] LABS: ESTIMATED AVERAGE GLUCOSE 146 mg/dL (70-100); HEMOGLOBIN A1c% 6.7 % (4.27-6.07)
== END 2022-01-01 09:19 | disposition home or self-care (01) ==
LOC: LAB.N 09:18
PROVIDERS: ATTEND Nurse Practitioner
DX: E11.8 Type 2 diabetes mellitus with unspecified complications (principal)
CPT/HCPCS: 36415; 83036

== ENCOUNTER 2022-04-18 13:09 | Outpatient (CLI) | payer MEDICARE, MEDICAID ==
[2022-04-18 13:48] VITALS: BP 108/60
--- NOTE | 2022-04-18 13:48 | SLEEP CARE CONSULTATION ---
Information from patient questionnaire entered by Aleah Whitney. I have reviewed and concur with the information entered by Aleah Whitney. This document represents the service I personally performed and the decisions made by , Lissy Ferguson ARNP. History of Present Illness Service Date and Time: 04/18/2022 1309 Previous diagnosis: Mild, Obstructive Sleep Apnea-Hypopnea Syndrome AHI: 11.2 Reason for follow up: first compliance after device update Equipment type: CPAP (Resmed Airsense 11, s/u 11/2021) Equipment obtained from: [employer] (not getting supplies) Mask style: Nasal Backup mask available: No Prior sleep studies: Yes Type of Sleep Study: Polysomnography (F/U POLY, PRIOR SS 07/27/2017, MARY, DUTTA 09/09/2017, hasnt used cpap since 08/2020) HPI additional information: YULIA GRIMES was diagnosed to have mild, AHI 11.2, obstructive sleep apnea- hypopnea syndrome and returned today for CPAP therapy first compliance follow- up. Sleep Study - Results Type of Sleep Study: Polysomnography (F/U POLY, PRIOR SS 07/27/2017, MARY, DUTTA 09/09/2017, hasnt used cpap since 08/2020) Prior sleep studies: Yes CPAP Compliance Data - Data Reviewed with Patient Average duration of nightly device use: 4 hours 37 minutes Compliance rate %: 50 (22/30 days used, currently) Current pressure setting (cmH2O): 4-12 Average residual AHI: 3.0 Central apnea: 0.0 Obstructive apnea: 2.2 Hypopnea: 0.1 Compliance data discussion: Yulia has been getting calls about turning in her CPAP since she did not do a compliance visit with her new machine. Her initial compliance data, dated 11/17/2021-12/16/2021, showed her compliant with 87%, 6 hours 35 minutes average use and AHI of 2.0 with pressure set at 4-12 cmH2O. Subjective Missed days of use due to: reports: other (forgetting to put on or back on after getting up to bathroom) Patient concerns: reports: mask discomfort, air blowing in eyes, mask leak noise, nasal congestion. denies: aerophagia, condensation in mask/hose, dry mouth, nose, throat, epistaxis Observed to snore while using device: No Current pressure setting perceived as: comfortable On therapy, patient: reports: sleeping better, awakening more refreshed, more rested overall. denies: drowsiness while driving Initial [place] Sleepiness Scale score: 7 Current [place] Sleepiness Scale score: 0 (04/18/22) Allergies and Home Medications Drug allergies reviewed: Yes (as listed in EMR) Home medication list reviewed: Yes (no changes) Review of Systems Review of systems same as previous: Yes (no changes) Physical Exam Vital signs obtained and entered by: ALEAH uRiz MA Blood Pressure: 108/60 (LEFT ARM) Cuff size: regular Heart Rate: 74 O2 Saturation: 95 Height: 5 ft 3 in Weight: 207 lb 3.2 oz Body Mass Index: 36.7 BMI Classification: Obese Impression and Plan 1. Obstructive Sleep Apnea-Hypopnea Syndrome, mild. Patient states she cannot afford to pay her monthly fees for her CPAP machine. [facility] because she did not have a compliance visit in her first 90 days. She is also currently not compliant with 50% compliance. She did reach 87% compliance in her initial period with her new device. She states she did not know she needed to come in and now she does not want to continue with using her CPAP at this time. She states she is not interested in any other treatments for her sleep apnea. I will discontinue the CPAP per her request. I advised her to come back if she changes her mind about treatments and we could talk about oral appliance or positional therapy. She declined again. Patient's apnea severity and rationale for treatment to reduce apnea, improve sleep quality and reduce cardiovascular and cerebrovascular events was reviewed. I also reviewed the benefit of consistent device use of CPAP for hypertension, diabetes, gastric reflux, depression and insomnia. 2. Obesity, unspecified. Currently patients BMI is 36.7. Obesity increases the risk of apnea, CPAP pressure requirements and overall health risks especially cardiovascular and diabetes. Thus patient is advised to lose weight. * Discontinue CPAP per patient request * Attempt to lose weight * Return as needed Counseling Topics: Weight loss health impact Visit Type: In Office Time Spent with Patient (minutes): 21 Provider Statement: I spent 100% of the Face to Face Visit with the patient with greater than 50% spent counseling the patient and coordination of care.
== END 2022-04-18 13:10 | disposition home or self-care (01) ==
LOC: SC 13:09
PROVIDERS: ATTEND Nurse Practitioner Family
DX: G47.33 Obstructive sleep apnea (adult) (pediatric) (principal); E66.9 Obesity, unspecified; Z68.36 Body mass index [BMI] 36.0-36.9, adult
CPT/HCPCS: 99213; G0463; 99212

== ENCOUNTER 2022-07-04 12:26 | Outpatient (CLI) | payer MEDICARE, MEDICAID ==
[2022-07-04 20:50] LABS: ESTIMATED AVERAGE GLUCOSE 200 mg/dL (70-100); HEMOGLOBIN A1c% 8.6 % (4.27-6.07)
== END 2022-07-04 12:27 | disposition home or self-care (01) ==
LOC: LAB.N 12:26
PROVIDERS: ATTEND Nurse Practitioner
DX: E11.8 Type 2 diabetes mellitus with unspecified complications (principal)
CPT/HCPCS: 36415; 83036

== ENCOUNTER 2023-02-08 13:18 | Outpatient (CLI) | payer MEDICARE, MEDICAID ==
[2023-02-08 18:46] LABS: CHOLESTEROL 186 mg/dL; HDL CHOLESTEROL 63 mg/dL; LDL CHOLESTEROL,CALCULATED 94 mg/dL; LDL/HDL RATIO 1.5 (<4.4); TRIGLYCERIDES 146 mg/dL (48-352); VLDL CHOLESTEROL 29 mg/dL
[2023-02-08 21:30] LABS: ESTIMATED AVERAGE GLUCOSE 283 mg/dL (70-100); HEMOGLOBIN A1c% 11.5 % (4.27-6.07)
== END 2023-02-08 13:19 | disposition home or self-care (01) ==
LOC: LAB.N 13:18
PROVIDERS: ATTEND Nurse Practitioner
DX: E78.5 Hyperlipidemia, unspecified (principal); E11.42 Type 2 diabetes mellitus with diabetic polyneuropathy
CPT/HCPCS: 36415; 80061; 83036; 83721

== ENCOUNTER 2023-05-09 11:21 | Outpatient (CLI) | payer MEDICARE, MEDICAID ==
[2023-05-09 17:47] LABS: BASOPHILS # (AUTO) 0.1 10^3/uL (0.0-0.1); BASOPHILS % (AUTO) 0.8 %; EOSINOPHILS # (AUTO) 0.4 10^3/uL (0.0-0.7); EOSINOPHILS % (AUTO) 3.8 %; HCT - HEMATOCRIT 40.2 % (37.0-47.0); HGB - HEMOGLOBIN 12.1 g/dL (12.0-16.0); LYMPHOCYTES # (AUTO) 2.3 10^3/uL (1.5-3.5); LYMPHOCYTES % (AUTO) 24.7 %; MEAN CORPUSCULAR HEMOGLOBIN 26.3 pg (27.0-31.0); MEAN CORPUSCULAR HGB CONC 30.1 g/dL (32.0-36.0); MEAN CORPUSCULAR VOLUME 87.4 fL (81.0-99.0); MEAN PLATELET VOLUME 11.2 fL (7.9-10.8); MONOCYTES # (AUTO) 0.9 10^3/uL (0.0-1.0); MONOCYTES % (AUTO) 9.5 %; NEUTROPHILS # (AUTO) 5.6 10^3/uL (1.5-6.6); NEUTROPHILS % (AUTO) 60.8 %; PLT - PLATELET COUNT 354 10^3/uL (130-450); RED CELL DISTRIBUTION WIDTH 14.8 % (12.0-15.0); WHITE BLOOD COUNT 9.2 x10^3/uL (4.8-10.8)
[2023-05-09 18:10] LABS: CREATININE,URINE 145.5 mg/dL; MICROALBUM/CREATININE RATIO,UR 55.7 ug/mg (<30.0); MICROALBUMIN,URINE 8.1 mg/dL
[2023-05-09 18:16] LABS: ALBUMIN 4.3 g/dL (3.2-5.5); ALBUMIN/GLOBULIN RATIO 1.5 (1.0-2.2); BILIRUBIN,TOTAL 0.3 mg/dL (0.2-1.0); CALCIUM 10.2 mg/dL (8.5-10.3); CREATININE 0.8 mg/dL (0.6-1.3); POTASSIUM 4.1 mmol/L (3.5-4.5); TOTAL PROTEIN 7.1 g/dL (6.4-8.9)
[2023-05-09 21:05] LABS: ESTIMATED AVERAGE GLUCOSE 260 mg/dL (70-100); HEMOGLOBIN A1c% 10.7 % (4.27-6.07)
== END 2023-05-09 11:22 | disposition home or self-care (01) ==
LOC: LAB.N 11:21
PROVIDERS: ATTEND Nurse Practitioner
DX: E11.9 Type 2 diabetes mellitus without complications (principal); D64.9 Anemia, unspecified
CPT/HCPCS: 36415; 80053; 82043; 82570; 82607; 82728; 83036; 83540; 84466; 85025

== ENCOUNTER 2023-08-06 14:51 | Outpatient (CLI) | payer MEDICARE, MEDICAID ==
[2023-08-06 15:23] LABS: CALCIUM 10.2 mg/dL (8.5-10.3); CREATININE 0.8 mg/dL (0.6-1.3); ESTIMATED AVERAGE GLUCOSE 235 mg/dL (70-100); HEMOGLOBIN A1c% 9.8 % (4.27-6.07); POTASSIUM 4.5 mmol/L (3.5-4.5)
== END 2023-08-06 14:52 | disposition home or self-care (01) ==
LOC: LAB 14:51
PROVIDERS: ATTEND Nurse Practitioner
DX: E11.9 Type 2 diabetes mellitus without complications (principal)
CPT/HCPCS: 36415; 80048; 83036